=== PATIENT | female | born 1985 | race Two or more races ===

== ENCOUNTER 2017-02-09 18:46 | Emergency (ER) | payer OTHER ==
[~2017-02-09] VITALS: Ht 170.2 cm; Wt 131.5 kg
[~2017-02-09 18:46] MED LIST: NAPR500T8 PO; OXYC-323 PO
--- NOTE | 2017-02-09 19:27 | PHYS DOC ---
Adult General Chief Complaint Chief Complaint: CHEST PAIN HPI HPI Patient is a 31 year old female who presents with onset this morning moderate dyspnea, dyspnea with exertion some tightness in the chest; no nausea vomiting diarrhea no dysuria or frequency or flank pain. No abdominal pain. Denies any prior cardiac history and is not on oral control or hormonal treatment no prior history of DVTs or PE.. Review of Systems Review of Systems Constitutional: Denies fever or chills [] Eyes: Denies change in visual acuity, redness, or eye pain [] HENT: Denies nasal congestion or sore throat [] Respiratory: Denies cough or shortness of breath [] Cardiovascular: No additional information not addressed in HPI [] GI: Denies abdominal pain, nausea, vomiting, bloody stools or diarrhea [] : Denies dysuria or hematuria [] Musculoskeletal: Denies back pain or joint pain [] Integument: Denies rash or skin lesions [] Neurologic: Denies headache, focal weakness or sensory changes [] Endocrine: Denies polyuria or polydipsia [] Current Medications Current Medications Current Medications Medications (Trade) Dose Ordered Sig/Malina Start Time Stop Time Status Last Admin Dose Admin Albuterol Sulfate (Ventolin Neb Soln) 2.5 mg 1X ONCE 02/09/17 21:15 02/09/17 21:21 DC 02/09/17 21:27 2.5 MG Info (Do NOT chart on this entry -- for MONITORING) 1 each PRN DAILY PRN 02/09/17 21:30 02/11/17 21:29 Iohexol (Omnipaque 300 Mg/ml) 75 ml 1X ONCE 02/09/17 21:30 02/09/17 21:31 DC 02/09/17 21:37 75 ML Lorazepam (Ativan) 0.5 mg 1X ONCE 02/09/17 19:15 02/09/17 19:17 DC 02/09/17 19:43 0.5 MG Allergies Allergies Allergies Coded Allergies Type Severity Reaction Last Updated Verified No Known Drug Allergies 03/03/16 No Physical Exam Physical Exam Constitutional: Well developed, well nourished, no acute distress, non-toxic appearance. [] HENT: Normocephalic, atraumatic, bilateral external ears normal, oropharynx moist, no oral exudates, nose normal. [] Eyes: PERRLA, EOMI, conjunctiva normal, no discharge. [] Neck: Normal range of motion, no tenderness, supple, no stridor. [] Cardiovascular:Heart rate regular rhythm, no murmur [] Lungs & Thorax: Bilateral breath sounds clear to auscultation [] Abdomen: Bowel sounds normal, soft, no tenderness, no masses, no pulsatile masses. [] Skin: Warm, dry, no erythema, no rash. [] Back: No tenderness, no CVA tenderness. [] Extremities: No tenderness, no cyanosis, no clubbing, ROM intact, no edema. [] Neurologic: Alert and oriented X 3, normal motor function, normal sensory function, no focal deficits noted. [] Psychologic: Affect normal, judgement normal, mood normal. [] Current Patient Data Vital Signs Vital Signs Date Time Temp Pulse Resp B/P (MAP) Pulse Ox O2 Delivery O2 Flow Rate FiO2 02/09/17 21:28 100 Room Air 02/09/17 21:00 90 30 131/77 (95) 02/09/17 19:02 99.5 99.5 Lab Values Laboratory Tests Test 02/09/17 19:20 02/09/17 20:36 White Blood Count 7.8 x10^3/uL (4.0-11.0) Red Blood Count 4.92 x10^6/uL (3.50-5.40) Hemoglobin 11.9 g/dL (12.0-15.5) L Hematocrit 37.1 % (36.0-47.0) Mean Corpuscular Volume 76 fL (79-100) L Mean Corpuscular Hemoglobin 24 pg (25-35) L Mean Corpuscular Hemoglobin Concent 32 g/dL (31-37) Red Cell Distribution Width 17.7 % (11.5-14.5) H Platelet Count 326 x10^3/uL (140-400) Neutrophils (%) (Auto) 72 % (31-73) Lymphocytes (%) (Auto) 20 % (24-48) L Monocytes (%) (Auto) 7 % (0-9) Eosinophils (%) (Auto) 1 % (0-3) Basophils (%) (Auto) 1 % (0-3) Neutrophils # (Auto) 5.6 x10^3uL (1.8-7.7) Lymphocytes # (Auto) 1.6 x10^3/uL (1.0-4.8) Monocytes # (Auto) 0.5 x10^3/uL (0.0-1.1) Eosinophils # (Auto) 0.1 x10^3/uL (0.0-0.7) Basophils # (Auto) 0.0 x10^3/uL (0.0-0.2) Sodium Level 138 mmol/L (136-145) Potassium Level 3.4 mmol/L (3.5-5.1) L Chloride Level 103 mmol/L (98-107) Carbon Dioxide Level 25 mmol/L (21-32) Anion Gap 10 (6-14) Blood Urea Nitrogen 8 mg/dL (7-20) Creatinine 0.6 mg/dL (0.6-1.0) Estimated GFR (Cockcroft-Gault) 118.2 BUN/Creatinine Ratio 13 (6-20) Glucose Level 125 mg/dL (70-99) H Calcium Level 8.3 mg/dL (8.5-10.1) L Total Bilirubin 0.2 mg/dL (0.2-1.0) Aspartate Amino Transferase (AST) 10 U/L (15-37) L Alanine Aminotransferase (ALT) 18 U/L (14-59) Alkaline Phosphatase 71 U/L (46-116) Troponin I Quantitative < 0.017 ng/mL (0.000-0.055) Total Protein 8.3 g/dL (6.4-8.2) H Albumin 3.6 g/dL (3.4-5.0) Albumin/Globulin Ratio 0.8 (1.0-1.7) L POC Urine HCG, Qualitative Hcg negative (Negative) Laboratory Tests 02/09/17 19:20 Laboratory Tests 02/09/17 19:20 EKG EKG EKG shows normal sinus rhythm rate of 87 no STEMI QTC normal my interpretation [ ] Radiology/Procedures Radiology/Procedures Chest x-ray [] negative for heart failure or infiltrate no acute disease process my interpretation CTA chest was negative for pulmonary embolism per the radiology report that I reviewed. Course & Med Decision Making Course & Med Decision Making Pertinent Labs and Imaging studies reviewed. (See chart for details) Plan will be to check labs EKG chest x-ray and reexamined. Patient has no tachycardia, oxygen saturation 100% on room air, normal respiratory rate no objective findings of any serious etiology for her dyspnea. CTA chest to exclude a large pulmonary embolism. [] Dragon Disclaimer Dragon Disclaimer This electronic medical record was generated, in whole or in part, using a voice recognition dictation system. Departure Departure Impression: Primary Impression: Dyspnea Disposition: HOME, SELF-CARE Condition: STABLE Referrals: UNKNOWN PCP NAME (PCP) Patient Instructions: Shortness of Breath, [id number] Scripts Albuterol Sulfate (VENTOLIN HFA INHALER) 18 Gm Hfa.aer.ad 2 PUFF INH Q4HRS for WHEEZING for 30 Days, #1 INHALER 0 Refills Prov: ZARINA VOGT MD 02/09/17 ZARINA VOGT MD Feb 09, 2017 19:27
[2017-02-09 19:32] LABS: BASO % 1 % (0-3); EOS % 1 % (0-3); HEMATOCRIT 37.1 % (36.0-47.0); HEMOGLOBIN 11.9 g/dL (12.0-15.5); LYMPH # 1.6 x10^3/uL (1.0-4.8); LYMPH % 20 % (24-48); MEAN CORPUSCULAR HEMOGLOBIN 24 pg (25-35); MEAN CORPUSCULAR HGB CONC 32 g/dL (31-37); MEAN CORPUSCULAR VOLUME 76 fL (79-100); MONO % 7 % (0-9); NEUT % 72 % (31-73); PLATELET COUNT 326 x10^3/uL (140-400); RED BLOOD COUNT 4.92 x10^6/uL (3.50-5.40); RED CELL DISTRIBUTION WIDTH 17.7 % (11.5-14.5); WHITE BLOOD COUNT 7.8 x10^3/uL (4.0-11.0)
[2017-02-09 19:54] LABS: CALCIUM 8.3 mg/dL (8.5-10.1); CREATININE 0.6 mg/dL (0.6-1.0); GFR 118.2; POTASSIUM 3.4 mmol/L (3.5-5.1)
[2017-02-09 19:57] LABS: ALBUMIN 3.6 g/dL (3.4-5.0); ALBUMIN/GLOBULIN RATIO 0.8 (1.0-1.7); TOTAL BILIRUBIN 0.2 mg/dL (0.2-1.0); TOTAL PROTEIN 8.3 g/dL (6.4-8.2)
[2017-02-09 21:00] VITALS: BP 131/77
[2017-02-09] MEDS ORDERED: ALBUTEROL SULFATE 2.5 MG/3 ML NEBU. NEB ONE (21:15)
[2017-02-09] MEDS ORDERED: CONTRAST GIVEN MC PRN (21:30)
[2017-02-09] MEDS ORDERED: IOHEXOL 300 MG/ML 75 ML VIAL IV ONE (21:30)
--- NOTE | 2017-02-09 21:58 | RAD ---
EXAM: CT angiography of the chest with intravenous contrast. HISTORY: Chest pain. Shortness of breath. TECHNIQUE: Computed tomographic images of the chest were obtained following the administration of 75 cc Omnipaque 300 intravenous contrast according to angiography protocol. Multiplanar reformatting was performed and 3-dimensional maximum intensity projection images were obtained. *One or more of the following individualized dose reduction techniques were utilized for this examination: 1. Automated exposure control. 2. Adjustment of the mA and/or kV according to patient size. 3. Use of iterative reconstruction technique. COMPARISON: None. FINDINGS: Evaluation for pulmonary embolism is significantly limited due to suboptimal contrast opacification of the pulmonary arteries. No central embolism is seen. The heart is normal in size. No pathologically enlarged lymph node is seen. There is a bovine aortic arch branching pattern, a normal variant. There is no pneumothorax or pleural effusion. There is no infiltrate or suspicious pulmonary nodule. There is hepatomegaly and hepatic steatosis. There is mild splenomegaly. The upper abdomen is otherwise unremarkable. No suspicious osseous lesion is seen. IMPRESSION: 1. Limited evaluation for pulmonary embolism due to suboptimal contrast opacification of the pulmonary arteries. No central embolism is seen. 2. Hepatomegaly and hepatic steatosis. 3. Mild splenomegaly. Electronically signed by: Kandy Anderson MD (02/09/2017 9:55 PM) [facility]
[2017-02-09] MEDS ORDERED: VENTOLIN HFA18 GM INH (22:20)
--- NOTE | 2017-02-10 08:16 | RAD ---
Exam performed: One view chest. Indication: chest pain Date of Service: 02/09/2017 9:11 PM Comparison: None available. Single AP upright portable view chest findings: Cardiomediastinal silhouette is within limits of normal. No acute infiltrates, effusion or pneumothorax is detected. The bony structures are normal. Impression: No acute cardiopulmonary process is detected.
--- NOTE | 2017-02-10 08:17 | EKG ---
[facility] [address] [place] [address] Test Date: 2017-02-09 Test Time: 19:04:18 Pat Name: BHARAT ALBARADO Department: Room: Gender: F [employer] Specialist: : 1985 Requested By: ZARINA VOGT Order Number: [id number] Reading MD: Cricket Fitch Measurements Intervals [place] Rate: 87 P: 27 PA: 174 QRS: 23 QRSD: 94 T: 24 QT: 362 QTc: 441 Interpretive Statements SINUS RHYTHM Electronically Signed On 02-10-2017 9:21:43 CDT by Cricket Fitch
== END 2017-02-09 23:15 | disposition home or self-care (01) ==
LOC: ER 18:46
DX: R06.00 Dyspnea, unspecified (principal); R07.89 Other chest pain
CPT/HCPCS: 36415; 71010; 71275; 80053; 81025; 84484; 85025; 93005; 94250; 94640; 96374; 99285; J2060; J7613; Q9967

== ENCOUNTER 2017-08-14 20:10 | Emergency (ER) | payer OTHER | END 2017-08-14 20:57 | disposition home or self-care (01) | LOC: ER 20:57 | DX: S90.32XA Contusion of left foot, initial encounter (principal); I10 Essential (primary) hypertension; E11.9 Type 2 diabetes mellitus without complications; W20.8XXA Other cause of strike by thrown, projected or falling object, initial encounter; Y93.89 Activity, other specified; Y99.8 Other external cause status; Y92.89 Other specified places as the place of occurrence of the external cause | CPT/HCPCS: 73630; 99284 ==

== ENCOUNTER 2019-05-20 17:35 | Emergency (ER) | payer OTHER ==
[~2019-05-20] VITALS: Ht 170.2 cm; Wt 97.5 kg
[~2019-05-20 17:35] MED LIST changes: -OXYC-323 PO; +OXYC1TAB15 PO; +TRAM-48 PO; +VENTOLIN HFA18 GM INH
[2019-05-20 18:36] VITALS: BP 121/76
[2019-05-20 18:48] LABS: BILIRUBIN,URINE NEGATIVE (NEG); CLARITY,URINE CLEAR; COLOR,URINE YELLOW; NITRITE,URINE NEGATIVE (NEG); PH,URINE 7.5; PROTEIN,URINE NEGATIVE (NEG-TRACE); UROBILINOGEN,URINE 0.2 mg/dL (0.2 mg/dL)
[2019-05-20 18:58] LABS: RBC,URINE 0 /HPF (0-2)
[2019-05-20 18:59] LABS: BACTERIA,URINE FEW /HPF (0-FEW); SQUAMOUS EPITHELIAL CELL,UR FEW /LPF; YEAST,URINE PRESENT /HPF
[2019-05-20] MEDS ORDERED: NYST15CR2 TP (19:18)
[2019-05-20] MEDS ORDERED: FLUC150T PO (19:18)
--- NOTE | 2019-05-20 19:19 | PHYS DOC ---
Past Medical History Past Medical History: Diabetes-Type II, Hypertension Additional Past Medical Histor: COMPARTMENT SYNDROME Past Surgical History: Alcohol Use: Occasionally Drug Use: None Adult General Chief Complaint Chief Complaint: VAGINAL PROBLEM HPI HPI Patient is a 33 year old [f__sex] who presents with [] Review of Systems Review of Systems Constitutional: Denies fever or chills [] Eyes: Denies change in visual acuity, redness, or eye pain [] HENT: Denies nasal congestion or sore throat [] Respiratory: Denies cough or shortness of breath [] Cardiovascular: No additional information not addressed in HPI [] GI: Denies abdominal pain, nausea, vomiting, bloody stools or diarrhea [] : Denies dysuria or hematuria [] Musculoskeletal: Denies back pain or joint pain [] Integument: Denies rash or skin lesions [] Neurologic: Denies headache, focal weakness or sensory changes [] Endocrine: Denies polyuria or polydipsia [] All other systems were reviewed and found to be within normal limits, except as documented in this note. Allergies Allergies Allergies Coded Allergies Type Severity Reaction Last Updated Verified No Known Drug Allergies 03/03/16 No Physical Exam Physical Exam Constitutional: Well developed, well nourished, no acute distress, non-toxic appearance. [] HENT: Normocephalic, atraumatic, bilateral external ears normal, oropharynx moist, no oral exudates, nose normal. [] Eyes: PERRLA, EOMI, conjunctiva normal, no discharge. [] Neck: Normal range of motion, no tenderness, supple, no stridor. [] Cardiovascular:Heart rate regular rhythm, no murmur [] Lungs & Thorax: Bilateral breath sounds clear to auscultation [] Skin: Warm, dry, no erythema, no rash. [] Back: No tenderness, no CVA tenderness. [] Extremities: No tenderness, no cyanosis, no clubbing, ROM intact, no edema. [] Neurologic: Alert and oriented X 3, normal motor function, normal sensory f unction, no focal deficits noted. [] Psychologic: Affect normal, judgement normal, mood normal. [] Current Patient Data Vital Signs Vital Signs Date Time Temp Pulse Resp B/P (MAP) Pulse Ox O2 Delivery O2 Flow Rate FiO2 05/20/19 18:36 98.5 83 16 121/76 (91) 98 Room Air 98.5 Lab Values Laboratory Tests Test 05/20/19 17:50 05/20/19 17:58 05/20/19 18:52 Urine Collection Type Unknown Urine Color Yellow Urine Clarity Clear Urine pH 7.5 Urine Specific [place] 1.020 Urine Protein Negative mg/dL (NEG-TRACE) Urine Glucose (UA) Negative mg/dL (NEG) Urine Ketones (Stick) Negative mg/dL (NEG) Urine Blood Negative (NEG) Urine Nitrite Negative (NEG) Urine Bilirubin Negative (NEG) Urine Urobilinogen Dipstick 0.2 mg/dL (0.2 mg/dL) Urine Leukocyte Esterase Negative (NEG) Urine RBC 0 /HPF (0-2) Urine WBC 1-4 /HPF (0-4) Urine Squamous Epithelial Cells Few /LPF Urine Bacteria Few /HPF (0-FEW) Urine Mucus Mod /LPF Urine Yeast Present /HPF POC Urine HCG, Qualitative Hcg negative (Negative) Chlamydia DNA Probe Negative (Negative) Neisseria gonorrhoeae DNA Probe Negative (Negative) Microbiology 05/20/19 Wet Prep - Final, Complete EKG EKG [] Radiology/Procedures Radiology/Procedures [] Course & Med Decision Making Course & Med Decision Making Pertinent Labs and Imaging studies reviewed. (See chart for details) [] Dragon Disclaimer Dragon Disclaimer This electronic medical record was generated, in whole or in part, using a voice recognition dictation system. Departure Departure Impression: Primary Impression: Candidiasis of vulva and vagina Disposition: 01 HOME, SELF-CARE Condition: STABLE Referrals: AUBREY LONGORIA Jr, MD Patient Instructions: Candidal Vulvovaginitis, Ssho-[id number]-Pass Additional Instructions: Fill the prescriptions and use them as directed. Follow up with Dr. Longoria next week, return to the ER if symptoms worsen. Scripts Nystatin/Triamcin (NYSTATIN-TRIAMCINOLONE CREAM) 15 Gm Cream..g. 1 NIRAJ TP BID for 2 Days, #15 GM 0 Refills Prov: GUIDO PANIAGUA [employer] 05/20/19 Fluconazole (DIFLUCAN) 150 Mg Tablet 1 TAB PO Q3DAYS for 3 Days, #3 TAB 0 Refills take 1 tablet by mouth every 72 hours x3 Prov: GUIDO PANIAGUA [employer] 05/20/19 GUIDO PANIAGUA [employer] May 20, 2019 19:19
[2019-05-24 23:08] LABS: GC PROBE Negative (Negative)
== END 2019-05-20 19:31 | disposition home or self-care (01) ==
LOC: ER 17:35
DX: B37.3 Candidiasis of vulva and vagina (principal); E11.9 Type 2 diabetes mellitus without complications; I10 Essential (primary) hypertension; Z98.890 Other specified postprocedural states
CPT/HCPCS: 81001; 81025; 87491; 87591; 99284; Q0111

== ENCOUNTER 2019-08-06 10:41 | Emergency (ER) | payer OTHER ==
[~2019-08-06] VITALS: Ht 170.2 cm; Wt 100.5 kg
[~2019-08-06 10:41] MED LIST changes: +FLUC150T PO; +NYST15CR2 TP
[2019-08-06 10:45] VITALS: BP 144/71
[2019-08-06 11:09] LABS: BILIRUBIN,URINE NEGATIVE (NEG); CLARITY,URINE CLEAR; COLOR,URINE YELLOW; NITRITE,URINE NEGATIVE (NEG); PROTEIN,URINE NEGATIVE (NEG-TRACE)
[2019-08-06 11:22] LABS: BACTERIA,URINE 0 /HPF (0-FEW); RBC,URINE 0 /HPF (0-2); SQUAMOUS EPITHELIAL CELL,UR MOD /LPF
[2019-08-06 12:04] LABS: INFLUENZA A PATIENT NEGATIVE (NEGATIVE); INFLUENZA B PATIENT NEGATIVE (NEGATIVE)
--- NOTE | 2019-08-06 12:13 | RAD ---
EXAM: Chest, 2 views. HISTORY: Fever. COMPARISON: None. FINDINGS: 2 views of the chest are obtained. There is no infiltrate, pleural effusion or pneumothorax. The heart is normal in size. IMPRESSION: No acute pulmonary finding. Electronically signed by: Kandy Anderson MD (08/06/2019 12:10 PM) [id number]
[2019-08-06] MEDS ORDERED: PRED50TA PO (12:38)
--- NOTE | 2019-08-06 12:38 | PHYS DOC ---
Past Medical History Past Medical History: Diabetes-Type II, Hypertension, Other Additional Past Medical Histor: COMPARTMENT SYNDROME Past Surgical History: , Other Additional Past Surgical Histo: gastric sleeve Smoking Status: Never Smoker Alcohol Use: Occasionally Drug Use: None Adult General Chief Complaint Chief Complaint: FEVER HPI HPI Patient is a 34 year old female presented to the ED today with subjective fevers, body aches, chills, symptoms for 3 days. Review of Systems Review of Systems Constitutional: Reports body aches, chills, fever Eyes: Denies change in visual acuity, redness, or eye pain [] HENT: Denies nasal congestion or sore throat [] Respiratory: Reports cough, denies shortness of breath [] Cardiovascular: No additional information not addressed in HPI [] GI: Denies abdominal pain, nausea, vomiting, bloody stools or diarrhea [] : Denies dysuria or hematuria [] Musculoskeletal: Denies back pain or joint pain [] Integument: Denies rash or skin lesions [] Neurologic: Denies headache, focal weakness or sensory changes [] All other systems were reviewed and found to be within normal limits, except as documented in this note. Allergies Allergies Allergies Coded Allergies Type Severity Reaction Last Updated Verified No Known Drug Allergies 03/03/16 No Physical Exam Physical Exam Constitutional: Well developed, well nourished, no acute distress, non-toxic appearance. [] HENT: Normocephalic, atraumatic, bilateral external ears normal, oropharynx moist, no oral exudates, nose normal. [] Eyes: PERRLA, EOMI, conjunctiva normal, no discharge. [] Neck: Normal range of motion, no tenderness, supple, no stridor. [] Cardiovascular:Heart rate regular rhythm, no murmur [] Lungs & Thorax: Bilateral breath sounds clear to auscultation [] Abdomen: Bowel sounds normal, soft, no tenderness, no masses, no pulsatile masses. [] Skin: Warm, dry, no erythema, no rash. [] Back: No tenderness, no CVA tenderness. [] Extremities: No tenderness, no cyanosis, no clubbing, ROM intact, no edema. [] Neurologic: Alert and oriented X 3, normal motor function, normal sensory function, no focal deficits noted. [] Psychologic: Affect normal, judgement normal, mood normal. [] Current Patient Data Vital Signs Vital Signs Date Time Temp Pulse Resp B/P (MAP) Pulse Ox O2 Delivery O2 Flow Rate FiO2 08/06/19 10:45 98.5 106 16 144/71 (95) 99 Room Air 98.5 Lab Values Laboratory Tests Test 08/06/19 10:55 08/06/19 11:01 08/06/19 11:30 Urine Collection Type Unknown Urine Color Yellow Urine Clarity Clear Urine pH 7.0 Urine Specific [place] 1.020 Urine Protein Negative mg/dL (NEG-TRACE) Urine Glucose (UA) Negative mg/dL (NEG) Urine Ketones (Stick) Negative mg/dL (NEG) Urine Blood Negative (NEG) Urine Nitrite Negative (NEG) Urine Bilirubin Negative (NEG) Urine Urobilinogen Dipstick 1.0 mg/dL (0.2 mg/dL) Urine Leukocyte Esterase Negative (NEG) Urine RBC 0 /HPF (0-2) Urine WBC 1-4 /HPF (0-4) Urine Squamous Epithelial Cells Mod /LPF Urine Bacteria 0 /HPF (0-FEW) POC Urine HCG, Qualitative Hcg negative (Negative) Influenza Type A Antigen Negative (NEGATIVE) Influenza Type B Antigen Negative (NEGATIVE) EKG EKG [] Radiology/Procedures Radiology/Procedures []PROCEDURE: CHEST PA & LATERAL EXAM: Chest, 2 views. HISTORY: Fever. COMPARISON: None. FINDINGS: 2 views of the chest are obtained. There is no infiltrate, pleural effusion or pneumothorax. The heart is normal in size. IMPRESSION: No acute pulmonary finding. Electronically signed by: Kandy Anderson MD (08/06/2019 12:10 PM) [id number] DICTATED and SIGNED BY: KANDY ANDERSON MD DATE: 08/06/19 1210 Course & Med Decision Making Course & Med Decision Making Pertinent Labs and Imaging studies reviewed. (See chart for details) This is a 34-year-old female patient presenting to the ED today complaining of body aches, chills, fevers, symptoms began 3 days ago. Negative urine hCG, urine analysis is negative for infection, chest x-ray is negative as interpreted by radiologist. Negative influenza A or B. Patient was discharged to home. Supportive care measures commended. Follow-up with PCP in 1-2 weeks Dragtej Disclaimer Dragon Disclaimer This electronic medical record was generated, in whole or in part, using a voice recognition dictation system. Departure Departure Impression: Primary Impression: Fever Additional Impression: Viral illness Disposition: 01 HOME, SELF-CARE Condition: STABLE Referrals: NO PCP (PCP) Follow up with your doctor in 1-2 weeks Patient Instructions: Fever, Adult Additional Instructions: You were evaluated in the emergency room, your chest x-ray is negative, influenza test is negative, your urine was negative for infection. Your symptoms could be viral. Please push fluids, rest, maintain good hand hygiene. Take the prescribed medications as ordered. Follow-up with your doctor in 1-2 weeks Scripts Prednisone (PREDNISONE) 50 Mg Tablet 1 TAB PO DAILY, #5 TAB Prov: FRED GREGORY APRN 08/06/19 Problem Qualifiers Primary Impression: Fever Fever type: unspecified Qualified Codes: R50.9 - Fever, unspecified FRED GREGORY APRN Aug 06, 2019 12:38
== END 2019-08-06 12:44 | disposition home or self-care (01) ==
LOC: ER 10:41
DX: B34.9 Viral infection, unspecified (principal); E11.9 Type 2 diabetes mellitus without complications; I10 Essential (primary) hypertension
CPT/HCPCS: 71046; 81001; 81025; 87804; 99284-25

== ENCOUNTER 2020-01-19 16:07 | Emergency (ER) | payer OTHER ==
[~2020-01-19] VITALS: Ht 170.2 cm; Wt 100.0 kg
[~2020-01-19 16:07] MED LIST changes: +PRED50TA PO
[2020-01-19] MEDS ORDERED: LIDO20SO10 MM (17:17)
--- NOTE | 2020-01-19 17:21 | PHYS DOC ---
Past Medical History Past Medical History: Diabetes-Type II, Hypertension, Other Additional Past Medical Histor: COMPARTMENT SYNDROME Past Surgical History: , Other Additional Past Surgical Histo: gastric sleeve Smoking Status: Current Some Day Smoker Alcohol Use: Occasionally Drug Use: None General Adult EDM: Chief Complaint: BREAST PROBLEM HPI: HPI: Patient is a 34 year old female who presents with right breast pain. This is been ongoing for the last 2 months but is progressively gotten worse. Initially it only occurred when she was getting closer. But now it has been constant. She states that she has severe pain if she puts on a brawl or if anything touches her nipple. She is concerned because her mother had breast cancer in her early 40s. She is tried to see her [facility] but has been unsuccessful due to multiple consultations. She states the pain feels like a burning sensation and she is very tender to touch. She is never had anything like this previously. Review of Systems: Review of Systems: Negative except marked Heart Score: Risk Factors: Risk Factors: DM, Current or recent (<one month) smoker, HTN, HLP, family history of CAD, obesity. Risk Scores: Score 0 - 3: 2.5% MACE over next 6 weeks - Discharge Home Score 4 - 6: 20.3% MACE over next 6 weeks - Admit for Clinical Observation Score 7 - 10: 72.7% MACE over next 6 weeks - Early Invasive Strategies Allergies: Allergies: Allergies Coded Allergies Type Severity Reaction Last Updated Verified No Known Drug Allergies 03/03/16 No Physical Exam: PE: General: Awake, alert, NAD. Well Nourished, well hydrated. Cooperative HEENT: Atraumatic, EOMI, PERRL, airway patent, moist oral mucosa Neck: Supple, trachea midline Breast: Bilateral breast appear normal, no dimpling or change in color, no discharge. R breast with severe tenderness to nipple. Respiratory: CTA bilaterally, normal effort, no wheezing/crackles CV: RRR, no murmur, cap refill <2 GI: Soft, nondistended, nontender, no masses MSK: No obvious deformities Skin: Warm, dry, intact Neuro: A&O x3, speech NL, sensory and motor grossly intact, no focal deficits Psych: Normal affect, normal mood, not suicidal or homicidal Current Patient Data: Vital Signs: Vital Signs Date Time Temp Pulse Resp B/P (MAP) Pulse Ox O2 Delivery O2 Flow Rate FiO2 01/19/20 16:15 98.5 68 16 134/73 (93) 100 Room Air 98.5 EKG: EKG: [] Radiology/Procedures: Radiology/Procedures: [] Course & Med Decision Making: Course & Med Decision Making Pertinent Labs and Imaging studies reviewed. (See chart for details) Patient is a 34-year-old female who presents to the emergency room complaining of severe breast pain. Skin appears normal. There is no obvious mass or signs of infection at this time. We will do viscous lidocaine. I have recommended to her that she follow-up with [facility] soon for a mammogram. Patient's test results and vitals while in the ED were fully reviewed and discussed with the patient. Patient is stable and at this time does not need admission to the hospital. We have discussed strict return precautions and the importance of following up with their Primary Care Physician. Patient stated understanding and was given an opportunity to ask any questions. Patient is in agreement with plan. Rona Disclaimer: Dragtej Disclaimer: This electronic medical record was generated, in whole or in part, using a voice recognition dictation system. Departure Departure Impression: Primary Impression: Acute breast pain Disposition: HOME, SELF-CARE Condition: STABLE Referrals: NO PCP (PCP) ROGER DIAZ MD Patient Instructions: Breast Tenderness Scripts Lidocaine HCl (Lidocaine HCl Viscous) 15 Ml Solution 5 ML MM TID, #120 ML Prov: KATHY MORTON MD 01/19/20 Justicifation of Admission Dx: Justifications for Admission: Justification of Admission Dx: No KATHY MORTON MD Jan 19, 2020 17:21
[2020-01-19] MEDS ORDERED: LIDOCAINE 2% VISCOUS 15 ML SOLUTION. SWSW ONE (17:30)
[2020-01-19 17:47] VITALS: BP 142/67
[2020-01-19] MEDS ORDERED: oxyCODONE/APAP 5/325 1 TAB TABLET PO ONE (18:00)
== END 2020-01-19 17:50 | disposition home or self-care (01) ==
LOC: ER 16:07
DX: N64.4 Mastodynia (principal); I10 Essential (primary) hypertension; E11.9 Type 2 diabetes mellitus without complications; F17.200 Nicotine dependence, unspecified, uncomplicated
CPT/HCPCS: 99285-25

== ENCOUNTER → 2020-01-24 | Outpatient (CLI) | payer OTHER ==
[2020-01-19 17:47] VITALS: BP 142/67
[~2020-01-24] MED LIST changes: +LIDO20SO10 MM
--- NOTE | 2020-01-24 16:13 | RAD ---
Examination: Whole breast right breast ultrasound INDICATION: 34-year-old early female with intermittent right breast pain. Patient reported area of palpable concern at the time of initial presentation to her referring clinician but no discrete mass on self exam at this visit. COMPARISON: None. TECHNIQUE: Grayscale ultrasound imaging of the right breast was performed including the subareolar breast and the axilla. FINDINGS: Scattered fibroglandular tissue is demonstrated with no dominant mass, architectural distortion or suspicious sonographic findings. The nipple areolar complex is normal. There is no axillary adenopathy. IMPRESSION: Negative whole breast right breast ultrasound. No sonographic evidence of malignancy. Recommend clinical management of patient's areas of intermittent pain and reported palpable concern which may include biopsy if there are any clinically suspicious findings on physical exam. In the absence of any clinically suspicious findings, age-appropriate routine annual mammographic screening starting at age 40 in average risk women is recommended. Discussed with patient. BI-RADS Category 1 Negative Patient entered into a reminder system with target due date for next mammogram.
== END | disposition home or self-care (01) ==
LOC: US 09:37
PROVIDERS: ATTEND Obstetrics & Gynecology
DX: N64.4 Mastodynia (principal)
CPT/HCPCS: 36415; 76641

== ENCOUNTER → 2020-01-24 | Outpatient (CLI) | payer OTHER ==
[2020-01-19 17:47] VITALS: BP 142/67
== END | disposition home or self-care (01) ==
LOC: LAB 08:37
PROVIDERS: ATTEND Obstetrics & Gynecology
DX: N92.6 Irregular menstruation, unspecified (principal)
CPT/HCPCS: 36415; 84702

== ENCOUNTER → 2020-02-03 | Outpatient (CLI) | payer OTHER ==
[2020-01-19 17:47] VITALS: BP 142/67
[2020-02-03 11:53] LABS: HEMATOCRIT 24.3 % (36.0-47.0); HEMOGLOBIN 7.3 g/dL (12.0-15.5); MEAN CORPUSCULAR HEMOGLOBIN 18 pg (25-35); MEAN CORPUSCULAR HGB CONC 30 g/dL (31-37); MEAN CORPUSCULAR VOLUME 61 fL (79-100); PLATELET COUNT 416 x10^3/uL (140-400); RED BLOOD COUNT 3.98 x10^6/uL (3.50-5.40); RED CELL DISTRIBUTION WIDTH 19.3 % (11.5-14.5)
[2020-02-03 12:23] LABS: FREE T4 1.1 ng/dL (0.76-1.46); THYROID STIM HORMONE (TSH) 2.114 uIU/mL (0.358-3.74)
[2020-02-04 16:10] LABS: RUBELLA IGG ANTIBODY 1.43 index (Immune >0.99)
== END | disposition home or self-care (01) ==
LOC: LAB 10:52
PROVIDERS: ATTEND Obstetrics & Gynecology
DX: Z34.91 Encounter for supervision of normal pregnancy, unspecified, first trimester (principal)
CPT/HCPCS: 81220; 83020; 84439; 84443; 85027; 85660; 86592; 86703; 86762; 86787; 86803; 86850; 86900; 86901; 87340

== ENCOUNTER → 2020-02-22 | Outpatient (CLI) | payer OTHER ==
--- NOTE | 2020-02-22 17:15 | RAD ---
Examination: OB < 14 WKS History: Reason: IUP SIZE AND DATES / Spl. Instructions: / History: Comparison/Correlation: None Findings: OB ultrasound exam was performed. Uterus measures 14 cm x 8.6 cm x 6.2 cm. Myometrium is unremarkable. Gestational sac is visualized. Yolk sac noted. pole has crown-rump length of 2.1 cm corresponding to 8 weeks 5 days. heart rate is 171 beats per minute. Ultrasound EDC is 09/28/2020. No subchorionic hemorrhage identified. Right ovary measures 3 cm x 2 cm 1.9 cm left ovary measures 3 cm x 2.3 cm x 2 cm. Normal renal inflow bilaterally seen. No adnexal mass. Impression: Single living intrauterine gestation corresponding to 8 weeks 5 days by crown-rump length. No suspicious findings. Electronically signed by: Colin Robins MD (02/22/2020 5:12 PM) [id number]
== END | disposition home or self-care (01) ==
LOC: US 16:20
PROVIDERS: ATTEND Obstetrics & Gynecology
DX: Z34.91 Encounter for supervision of normal pregnancy, unspecified, first trimester (principal); Z3A.08 8 weeks gestation of pregnancy
CPT/HCPCS: 76801

== ENCOUNTER 2020-03-11 14:24 | Emergency (ER) | payer OTHER ==
[~2020-03-11] VITALS: Ht 170.2 cm; Wt 102.9 kg
[2020-03-11 14:58] LABS: BILIRUBIN,URINE NEGATIVE (NEG); CLARITY,URINE CLEAR; COLOR,URINE YELLOW; NITRITE,URINE NEGATIVE (NEG); PROTEIN,URINE NEGATIVE (NEG-TRACE); UROBILINOGEN,URINE 0.2 mg/dL (0.2 mg/dL)
[2020-03-11] MEDS ORDERED: ACETAMINOPHEN 500 MG TABLET PO ONE (15:00)
[2020-03-11 15:02] LABS: BACTERIA,URINE FEW /HPF (0-FEW); RBC,URINE OCC /HPF (0-2); SQUAMOUS EPITHELIAL CELL,UR MOD /LPF
[2020-03-11 15:03] LABS: WBC,URINE OCC /HPF (0-4); YEAST,URINE PRESENT /HPF
[2020-03-11 15:06] LABS: BASO % 1 % (0-3); EOS # 0.1 x10^3/uL (0.0-0.7); EOS % 1 % (0-3); HEMATOCRIT 24.8 % (36.0-47.0); HEMOGLOBIN 7.6 g/dL (12.0-15.5); LYMPH # 1.6 x10^3/uL (1.0-4.8); LYMPH % 23 % (24-48); MEAN CORPUSCULAR HEMOGLOBIN 18 pg (25-35); MEAN CORPUSCULAR HGB CONC 31 g/dL (31-37); MEAN CORPUSCULAR VOLUME 59 fL (79-100); MONO # 0.5 x10^3/uL (0.0-1.1); MONO % 7 % (0-9); NEUT # 4.7 x10^3/uL (1.8-7.7); NEUT % 68 % (31-73); PLATELET COUNT 397 x10^3/uL (140-400); RED BLOOD COUNT 4.19 x10^6/uL (3.50-5.40); RED CELL DISTRIBUTION WIDTH 18.3 % (11.5-14.5)
[2020-03-11 15:13] LABS: CALCIUM 8.8 mg/dL (8.5-10.1); CREATININE 0.8 mg/dL (0.6-1.0); GFR 83.1; POTASSIUM 3.9 mmol/L (3.5-5.1)
[2020-03-11 15:18] LABS: PLT ESTIMATE ADEQUATE (ADEQUATE)
[2020-03-11 15:19] LABS: ANISOCYTOSIS SLIGHT; HYPOCHROMIA MARKED; MICROCYTOSIS MARKED; POIKILOCYTOSIS SLIGHT
[2020-03-11 15:20] LABS: OVALOCYTES PRESENT
[2020-03-11 15:22] LABS: ALBUMIN 3.2 g/dL (3.4-5.0); ALBUMIN/GLOBULIN RATIO 0.7 (1.0-1.7); TOTAL BILIRUBIN 0.3 mg/dL (0.2-1.0); TOTAL PROTEIN 8.1 g/dL (6.4-8.2)
--- NOTE | 2020-03-11 16:04 | PHYS DOC ---
Past Medical History Past Medical History: Anemia, Diabetes-Type II, Hypertension, Other Additional Past Medical Histor: COMPARTMENT SYNDROME,CLUB FOOT Past Surgical History: , Other Additional Past Surgical Histo: gastric sleeve, X5 Smoking Status: Former Smoker Alcohol Use: None Drug Use: None General Adult EDM: Chief Complaint: ABDOMINAL PAIN IN HPI: HPI: The history was obtained from the patient. Patient is a 34-year-old female with PMH anemia who presents with a chief complaint of suprapubic abdominal cramping. Patient states the pain began yesterday. States the pain is been more constant than normal. States has had cramping 2 months ago with her but this pain is more constant and has her concerned. Denies vaginal bleeding or discharge. Denies dysuria or hematuria. Denies syncope. States she followed Dr. Diaz for her GRINDER OPERATOR AUTOMATIC needs. She estimates she is 13 weeks . States she has had an ultrasound to confirm IUP. Denies chest pain or shortness of breath. Has tried Tylenol at home with minimal relief. Denies vomiting. No other complaints. Review of Systems: Review of Systems: Constitutional: Denies fever or chills. [] Eyes: Denies change in visual acuity. [] HENT: Denies nasal congestion or sore throat. [] Respiratory: Denies cough or shortness of breath. [] Cardiovascular: Denies chest pain or edema. [] GI: Positive for abdominal pain : Denies dysuria. [] Musculoskeletal: Denies back pain or joint pain. [] Integument: Denies rash. [] Neurologic: Denies headache, focal weakness or sensory changes. [] Endocrine: Denies polyuria or polydipsia. [] Lymphatic: Denies swollen glands. [] Psychiatric: Denies depression or anxiety. [] Heart Score: Risk Factors: Risk Factors: DM, Current or recent (<one month) smoker, HTN, HLP, family history of CAD, obesity. Risk Scores: Score 0 - 3: 2.5% MACE over next 6 weeks - Discharge Home Score 4 - 6: 20.3% MACE over next 6 weeks - Admit for Clinical Observation Score 7 - 10: 72.7% MACE over next 6 weeks - Early Invasive Strategies Current Medications: Current Medications Medications (Trade) Dose Ordered Sig/Malina Start Time Stop Time Status Last Admin Dose Admin Acetaminophen (Tylenol) 1,000 mg 1X ONCE 03/11/20 15:00 03/11/20 15:01 DC 03/11/20 15:18 1,000 MG Allergies: Allergies: Allergies Coded Allergies Type Severity Reaction Last Updated Verified No Known Drug Allergies 03/03/16 No Physical Exam: PE: Constitutional: Well developed, well nourished, no acute distress, non-toxic appearance. [] HENT: Normocephalic, atraumatic, bilateral external ears normal, oropharynx moist, no oral exudates, nose normal. [] Eyes: PERRLA, EOMI, conjunctiva normal, no discharge. [] Neck: Normal range of motion, no tenderness, supple, no stridor. [] Cardiovascular:Heart rate regular rhythm, no murmur [] Lungs & Thorax: Bilateral breath sounds clear to auscultation [] Abdomen: soft, nontender, nonacute abdomen. No involuntary guarding or rigidity noted. No acute peritonitis. Skin: Warm, dry, no erythema, no rash. [] Back: No tenderness, no CVA tenderness. [] Extremities: No tenderness, no cyanosis, no clubbing, ROM intact, no edema. [] Neurologic: Alert and oriented X 3, normal motor function, normal sensory function, no focal deficits noted. [] Psychologic: Affect normal, judgement normal, mood normal. [] Current Patient Data: Labs: Laboratory Tests Test 03/11/20 14:36 03/11/20 14:55 03/11/20 14:58 Urine Collection Type Unknown Urine Color Yellow Urine Clarity Clear Urine pH 7.0 (<5.0-8.0) Urine Specific [place] 1.010 (1.000-1.030) Urine Protein Negative mg/dL (NEG-TRACE) Urine Glucose (UA) Negative mg/dL (NEG) Urine Ketones (Stick) Negative mg/dL (NEG) Urine Blood Negative (NEG) Urine Nitrite Negative (NEG) Urine Bilirubin Negative (NEG) Urine Urobilinogen Dipstick 0.2 mg/dL (0.2 mg/dL) Urine Leukocyte Esterase Negative (NEG) Urine RBC Occ /HPF (0-2) Urine WBC Occ /HPF (0-4) Urine Squamous Epithelial Cells Mod /LPF Urine Bacteria Few /HPF (0-FEW) Urine Yeast Present /HPF POC Urine HCG, Qualitative Hcg positive (Negative) White Blood Count 7.0 x10^3/uL (4.0-11.0) Red Blood Count 4.19 x10^6/uL (3.50-5.40) Hemoglobin 7.6 g/dL (12.0-15.5) L Hematocrit 24.8 % (36.0-47.0) L Mean Corpuscular Volume 59 fL (79-100) L Mean Corpuscular Hemoglobin 18 pg (25-35) L Mean Corpuscular Hemoglobin Concent 31 g/dL (31-37) Red Cell Distribution Width 18.3 % (11.5-14.5) H Platelet Count 397 x10^3/uL (140-400) Neutrophils (%) (Auto) 68 % (31-73) Lymphocytes (%) (Auto) 23 % (24-48) L Monocytes (%) (Auto) 7 % (0-9) Eosinophils (%) (Auto) 1 % (0-3) Basophils (%) (Auto) 1 % (0-3) Neutrophils # (Auto) 4.7 x10^3/uL (1.8-7.7) Lymphocytes # (Auto) 1.6 x10^3/uL (1.0-4.8) Monocytes # (Auto) 0.5 x10^3/uL (0.0-1.1) Eosinophils # (Auto) 0.1 x10^3/uL (0.0-0.7) Basophils # (Auto) 0.0 x10^3/uL (0.0-0.2) Platelet Estimate Adequate (ADEQUATE) Hypochromasia Marked Poikilocytosis Slight Anisocytosis Slight Microcytosis Marked Ovalocytes Present Sodium Level 136 mmol/L (136-145) Potassium Level 3.9 mmol/L (3.5-5.1) Chloride Level 106 mmol/L (98-107) Carbon Dioxide Level 23 mmol/L (21-32) Anion Gap 7 (6-14) Blood Urea Nitrogen 10 mg/dL (7-20) Creatinine 0.8 mg/dL (0.6-1.0) Estimated GFR (Cockcroft-Gault) 83.1 BUN/Creatinine Ratio 13 (6-20) Glucose Level 89 mg/dL (70-99) Calcium Level 8.8 mg/dL (8.5-10.1) Total Bilirubin 0.3 mg/dL (0.2-1.0) Aspartate Amino Transferase (AST) 12 U/L (15-37) L Alanine Aminotransferase (ALT) 11 U/L (14-59) L Alkaline Phosphatase 59 U/L (46-116) Total Protein 8.1 g/dL (6.4-8.2) Albumin 3.2 g/dL (3.4-5.0) L Albumin/Globulin Ratio 0.7 (1.0-1.7) L Lipase 100 U/L (73-393) Laboratory Tests 03/11/20 14:58 Laboratory Tests 03/11/20 14:58 Vital Signs: Vital Signs Date Time Temp Pulse Resp B/P (MAP) Pulse Ox O2 Delivery O2 Flow Rate FiO2 03/11/20 14:48 97.1 78 20 140/64 (89) 99 Room Air 97.1 EKG: EKG: [] Radiology/Procedures: Radiology/Procedures: [facility] [address] [place], [place] [id number] IMAGING REPORT Signed PATIENT: BHARAT ALBARADO I ACCOUNT: [id number] : 1985 LOCATION: ER AGE: 34 SEX: F EXAM STATUS: REG ER ORD. PHYSICIAN: HORTENCIA ROSENTHAL DO REASON: abdominal cramping PROCEDURE: OB < 14 WKS Exam: Ultrasound OB less than 14 weeks Indication: Abdominal cramping Technique: Real-time grayscale and color Doppler images of the pelvis were obtained by the department network mgr. Comparisons: None FINDINGS: Uterus measures 13 x 11 x 7.5 cm. Within the endometrium there is a gestational sac with pole measuring 5.2 cm corresponding to 11 weeks 6 days. heart rate is measured at 171 bpm. Left ovary measures 2.5 x 2.1 x 1.9 cm. Vascular flow identified in the left ovary. Right ovary is not visualized. No free fluid. IMPRESSION: 1. Single live intrauterine gestation of 12 weeks 1 day by LMP with concordant ultrasound. EDC 09/22/2020 2. Dedicated survey is recommended at 18-20 weeks gestation. Electronically signed by: Shikha Coe MD (03/11/2020 5:12 PM) [id number] DICTATED and SIGNED BY: SHIKHA COE MD DATE: 03/11/201711 [] Course & Med Decision Making: Course & Med Decision Making Pertinent Labs and Imaging studies reviewed. (See chart for details) [] Patient is a well-appearing 34-year-old female presents with chief complaint of suprapubic abdominal cramping. Noted to be approximately 13 weeks . Initial vital signs unremarkable including non-tachycardic afebrile. Abdomen without peritonitis or involuntary guarding. Ultrasound imaging was obtained and does reveal an intrauterine estimated age 11 weeks. Appropriate heart tones. Urine without evidence of infection. Labs grossly unremarkable. CBC without leukocytosis. On repeat examination her abdomen is benign. She has tolerated p.o. She does state that she has been eating and drinking well overall. Overall low suspicion for appendicitis however given the location of her discomfort she was given strict 8 to 12-hour return precaution s. This will compromise home and self monitoring closely. Instructed follow-up with her GRINDER OPERATOR AUTOMATIC in the next 2 to 3 days. Return precautions discussed and understood. Stable for discharge home. Dragon Disclaimer: [place]miro Disclaimer: This electronic medical record was generated, in whole or in part, using a voice recognition dictation system. Departure Departure Impression: Primary Impression: Abdominal pain in Qualified Codes: O26.891 - Other specified related conditions, first trimester; R10.9 - Unspecified abdominal pain Disposition: 01 HOME, SELF-CARE Condition: STABLE Referrals: NO PCP (PCP) ROGER DIAZ MD Patient Instructions: Abdominal Pain During Additional Instructions: Discharge Abdominal Pain Re-Check Precautions: I'm unsure of the specific cause of your abdominal pain. However, at this point I feel that you are low risk for a life threatening emergency and that discharge from the Emergency Department is safe. There is a very small possibility that you are just too early in your clinical course for our physical exam/labs/imaging to ascertain whether or not you have an emergent condition that could potentially cause permanent disability or be life threatening. As such, it is very important that you follow up with your primary doctor or return to the Emergency Department in 12-24 hours for re-assessment and further evaluation if clinically indicated. If you develop new or worsening symptoms then you should return to the Emergency Department immediately. Home Care Instructions: Abdominal Pain Many things may cause abdominal pain. Your ER visit might not show the exact reason you are having pain. In some cases, additional time is needed to determine if the cause is serious. Therefore you may be told to go home and watch for any changes or worsening in your condition. Before that, we may not know if you need more testing, or if hospitalization or surgery is necessary. If its not something serious, the pain may go away without treatment or get better with simple things like avoiding certain foods or medications. In the ER, your doctor asks you questions, examines you and in some cases, may order tests. These help doctors decide if the pain is from something serious. Tests are not always done and may not provide a definite answer. There can still be a problem, even with normal test results. Abdominal pain may be caused by something serious (like appendicitis), which is not obvious right away. Because of this, another checkup is needed to make sure you are OK. It is VERY IMPORTANT to follow up for a repeat exam, especially if you have any symptoms that are not going away or are getting worse. We recommend that you RETURN TO THE EMERGENCY ROOM IN 8-12 HOURS to be rechecked. If you cannot, you may follow up with your primary care doctor or clinic. It is important that you follow all of the instructions below. RETURN TO THE EMERGENCY ROOM IMMEDIATELY IF: The pain does not go away or gets worse. You have a fever. You keep throwing up and cannot keep anything down. You pass bloody or black stools. You develop new symptoms. HOME CARE INSTRUCTIONS Come back to the ER (or see your doctor) in 8-12 hours. DO NOT take laxatives unless directed by your doctor. Avoid the use of alcohol Take pain medicine only as directed by your doctor. Only take [id number] or prescription medicine as directed by your doctor. Try a clear liquid diet (broth, tea, jello, water) for the next 12-24 hours. Slowly move to a bland diet as tolerated. Do not eat greasy, fatty or spicy foods. Once you start getting better, go back to a normal, healthy diet, slowly over a few days. DISCHARGE PT INSTRUCTIONS: YOU HAVE BEEN EVALUATED FOR ABDOMINAL PAIN. HOWEVER, WE ARE UNABLE TO PROVIDE A DEFINITE CAUSE OF YOUR SYMPTOMS. EVEN THOUGH YOUR TESTS MAY HAVE BEEN NORMAL, YOU STILL COULD HAVE A SERIOUS CAUSE FOR YOUR ABDOMINAL PAIN, INCLUDING APPENDICITIS. THE BEST TEST TO DETERMINE IF YOU HAVE A SERIOUS CAUSE IS RE-EXAMINATION OVER TIME. WE USED TO ADMIT PATIENTS TO THE HOSPITAL FOR THIS, BUT CAN NOW ALLOW YOU TO GO HOME, & RETURN TO OUR ER THE NEXT DAY FOR RE- EXAMINATION. THUS, WE WOULD LIKE YOU TO RETURN TO OUR ER TOMORROW FOR YOUR RE- EVALUATION. (IF YOUR SYMPTOMS HAVE GONE AWAY, THEN YOU DO NOT NEED TO RETURN.) IF YOUR SYMPTOMS GET WORSE BETWEEN NOW & THEN, YOU SHOULD RETURN IMMEDIATELY & NOT WAIT UNTIL TOMORROW. SYMPTOMS TO LOOK FOR WO RSENING PAIN, HIGH FEVER, PERSISTENT VOMITING [NOT CONTROLLED BY MEDICINE], AND/OR OVERALL WORSENING OF YOUR CONDITION. Scripts Acetaminophen (Tylenol) 325 Mg Capsule 1000 MG PO TID PRN PRN for PAIN for 7 Days, #21 CAP Prov: HORTENCIA ROSENTHAL DO 03/11/20 Justicifation of Admission Dx: Justifications for Admission: Justification of Admission Dx: N/A HORTENCIA ROSENTHAL DO Mar 11, 2020 16:04
[2020-03-11] MEDS ORDERED: ACET325C6 PO (16:58)
--- NOTE | 2020-03-11 17:14 | RAD ---
Exam: Ultrasound OB less than 14 weeks Indication: Abdominal cramping Technique: Real-time grayscale and color Doppler images of the pelvis were obtained by the department cable splicer apprentice. Comparisons: None FINDINGS: Uterus measures 13 x 11 x 7.5 cm. Within the endometrium there is a gestational sac with pole measuring 5.2 cm corresponding to 11 weeks 6 days. heart rate is measured at 171 bpm. Left ovary measures 2.5 x 2.1 x 1.9 cm. Vascular flow identified in the left ovary. Right ovary is not visualized. No free fluid. IMPRESSION: 1. Single live intrauterine gestation of 12 weeks 1 day by LMP with concordant ultrasound. EDC 09/22/2020 2. Dedicated survey is recommended at 18-20 weeks gestation. Electronically signed by: Shikha Crane MD (03/11/2020 5:12 PM) [id number]
[2020-03-11 17:24] VITALS: BP 104/58
== END 2020-03-11 17:35 | disposition home or self-care (01) ==
LOC: ER 14:24
DX: O26.891 Other specified pregnancy related conditions, first trimester (principal); R10.9 Unspecified abdominal pain; E11.9 Type 2 diabetes mellitus without complications; I10 Essential (primary) hypertension; Z98.890 Other specified postprocedural states; Z87.891 Personal history of nicotine dependence; Z3A.11 11 weeks gestation of pregnancy
CPT/HCPCS: 36415; 76801; 80053; 81001; 81025; 83690; 85025; 99285

== ENCOUNTER → 2020-03-30 | Outpatient (CLI) | payer OTHER ==
[2020-03-11 17:24] VITALS: BP 104/58
[~2020-03-30] MED LIST changes: +ACET325C6 PO
[2020-03-30 10:17] LABS: BASO % 0 % (0-3); EOS # 0.1 x10^3/uL (0.0-0.7); EOS % 2 % (0-3); HEMATOCRIT 26.5 % (36.0-47.0); HEMOGLOBIN 7.8 g/dL (12.0-15.5); LYMPH % 20 % (24-48); MEAN CORPUSCULAR HEMOGLOBIN 18 pg (25-35); MEAN CORPUSCULAR HGB CONC 29 g/dL (31-37); MEAN CORPUSCULAR VOLUME 61 fL (79-100); MONO # 0.3 x10^3/uL (0.0-1.1); MONO % 6 % (0-9); NEUT # 3.8 x10^3/uL (1.8-7.7); NEUT % 72 % (31-73); PLATELET COUNT 411 x10^3/uL (140-400); RED BLOOD COUNT 4.36 x10^6/uL (3.50-5.40); RED CELL DISTRIBUTION WIDTH 18.9 % (11.5-14.5); WHITE BLOOD COUNT 5.3 x10^3/uL (4.0-11.0)
[2020-03-30 12:46] LABS: ANISOCYTOSIS PRESENT; HYPOCHROMIA PRESENT; MICROCYTOSIS PRESENT; PLT ESTIMATE ADEQUATE (ADEQUATE)
== END ==
LOC: LAB 09:51
PROVIDERS: ATTEND Obstetrics & Gynecology
DX: Z34.92 Encounter for supervision of normal pregnancy, unspecified, second trimester (principal); Z3A.00 Weeks of gestation of pregnancy not specified
CPT/HCPCS: 36415; 82607; 82728; 82746; 83540; 83550; 85025

== ENCOUNTER → 2020-04-27 | Outpatient (CLI) | payer OTHER | LOC: LAB 10:58 | PROVIDERS: ATTEND Obstetrics & Gynecology | DX: Z34.92 Encounter for supervision of normal pregnancy, unspecified, second trimester (principal); Z3A.18 18 weeks gestation of pregnancy | CPT/HCPCS: 81511 ==

== ENCOUNTER → 2020-05-01 | Outpatient (CLI) | payer OTHER ==
--- NOTE | 2020-05-01 17:53 | KCIC ---
EXAM: Ultrasound OB Greater than 14 weeks INDICATION: Reason: SIZE AND DATES / Spl. Instructions: / History: TECHNIQUE: Real-time obstetrical ultrasound was performed with permanent freeze-frame documentation. COMPARISON: None. FINDINGS: POSITION: Variable HEART RATE: 153 bpm ROSIO: 11.8 cm PLACENTA: Anterior, low-lying. CERVICAL LENGTH: 3.1 cm. MATERNAL UTERUS: Unremarkable. MATERNAL ADNEXA: Unremarkable. AGE/DATES: Gestational Age by LMP: 19 weeks 3 days Gestation Age by US: 19 weeks 0 days EDC by LMP: September 22, 2020 EDC by US: September 25, 2020 WEIGHT: 269 grams +/- 40 grams PERCENTILE WEIGHT: Not estimated BIOMETRIC PARAMETERS: BPD: 4.4 cm corresponding with 19 weeks 2 days HC: 15.9 cm corresponding with 18 weeks 5 days AC: 13.1 cm corresponding with 18 weeks 5 days FL: 3.0 cm corresponding with 19 weeks 3 days ANATOMY: CARDIAC: Four-chamber heart not well shown on this exam. UMBILICAL CORD: Normal 3 vessel cord. Normal cord insertion. BRAIN: Unremarkable. NOSE/LIPS: Unremarkable. SPINE: Unremarkable. EXTREMITIES: Unremarkable. STOMACH: Unremarkable. KIDNEYS: Unremarkable. BLADDER: Unremarkable. IMPRESSION: Normal OB ultrasound demonstrating a single viable fetus in variable position. Estimated gestational age of 19 weeks 0 days and EDC of September 25, 2020. There does appear to be a low-lying placenta. Four chamber heart not well visualized on this exam. Electronically signed by: Mitch Price MD (05/01/2020 5:49 PM) [id number]
== END ==
LOC: KCIC US 15:01
PROVIDERS: ATTEND Obstetrics & Gynecology
DX: O44.42 Low lying placenta NOS or without hemorrhage, second trimester (principal); Z3A.19 19 weeks gestation of pregnancy
CPT/HCPCS: 76805

== ENCOUNTER → 2020-05-02 | Outpatient (CLI) | payer OTHER ==
[2020-05-02 15:43] LABS: BASO % 0 % (0-3); EOS # 0.1 x10^3/uL (0.0-0.7); EOS % 1 % (0-3); HEMATOCRIT 24.4 % (36.0-47.0); HEMOGLOBIN 7.3 g/dL (12.0-15.5); LYMPH # 1.9 x10^3/uL (1.0-4.8); LYMPH % 22 % (24-48); MEAN CORPUSCULAR HEMOGLOBIN 18 pg (25-35); MEAN CORPUSCULAR HGB CONC 30 g/dL (31-37); MEAN CORPUSCULAR VOLUME 61 fL (79-100); MONO # 0.7 x10^3/uL (0.0-1.1); MONO % 8 % (0-9); NEUT % 69 % (31-73); PLATELET COUNT 357 x10^3/uL (140-400); RED CELL DISTRIBUTION WIDTH 18.5 % (11.5-14.5); WHITE BLOOD COUNT 8.6 x10^3/uL (4.0-11.0)
[2020-05-02 17:52] LABS: HYPOCHROMIA MOD; MICROCYTOSIS MARKED; OVALOCYTES FEW; PLT ESTIMATE ADEQUATE (ADEQUATE); POLYCHROMASIA SLIGHT
[2020-05-02 17:53] LABS: ANISOCYTOSIS SLIGHT
== END ==
LOC: ONCLAB 15:29
PROVIDERS: ATTEND Physician Assistant
DX: D50.9 Iron deficiency anemia, unspecified (principal)
CPT/HCPCS: 36415; 85025

== ENCOUNTER → 2020-05-30 | Outpatient (CLI) | payer OTHER ==
[2020-05-30 13:42] LABS: BASO % 0 % (0-3); EOS % 1 % (0-3); HEMATOCRIT 33.1 % (36.0-47.0); HEMOGLOBIN 10.4 g/dL (12.0-15.5); LYMPH # 1.2 x10^3/uL (1.0-4.8); LYMPH % 21 % (24-48); MEAN CORPUSCULAR HEMOGLOBIN 23 pg (25-35); MEAN CORPUSCULAR HGB CONC 31 g/dL (31-37); MEAN CORPUSCULAR VOLUME 74 fL (79-100); MONO # 0.4 x10^3/uL (0.0-1.1); MONO % 7 % (0-9); NEUT % 72 % (31-73); PLATELET COUNT 254 x10^3/uL (140-400); RED BLOOD COUNT 4.45 x10^6/uL (3.50-5.40); RED CELL DISTRIBUTION WIDTH 35.9 % (11.5-14.5); WHITE BLOOD COUNT 5.6 x10^3/uL (4.0-11.0)
[2020-05-30 13:59] LABS: ANISOCYTOSIS MOD; HYPOCHROMIA SLIGHT; MICROCYTOSIS MOD; PLT ESTIMATE ADEQUATE (ADEQUATE)
[2020-05-30 14:01] LABS: POLYCHROMASIA SLIGHT
== END ==
LOC: ONCLAB 13:14
PROVIDERS: ATTEND Internal Medicine Hematology & Oncology
DX: D50.9 Iron deficiency anemia, unspecified (principal); E53.8 Deficiency of other specified B group vitamins
CPT/HCPCS: 36415; 82607; 82728; 82746; 83540; 83550; 85025

== ENCOUNTER → 2020-06-07 | Outpatient (CLI) | payer OTHER ==
[2020-06-07 17:18] LABS: HEMATOCRIT 33.1 % (36.0-47.0); HEMOGLOBIN 10.4 g/dL (12.0-15.5); RED BLOOD COUNT 4.36 x10^6/uL (3.50-5.40); RED CELL DISTRIBUTION WIDTH 33.6 % (11.5-14.5); WHITE BLOOD COUNT 6.5 x10^3/uL (4.0-11.0)
[2020-06-07 17:34] LABS: ALBUMIN 2.7 g/dL (3.4-5.0); ALBUMIN/GLOBULIN RATIO 0.6 (1.0-1.7); CALCIUM 8.3 mg/dL (8.5-10.1); CREATININE 0.7 mg/dL (0.6-1.0); POTASSIUM 3.5 mmol/L (3.5-5.1); TOTAL BILIRUBIN 0.1 mg/dL (0.2-1.0); TOTAL PROTEIN 7.2 g/dL (6.4-8.2)
== END ==
LOC: LAB 15:53
PROVIDERS: ATTEND Obstetrics & Gynecology
DX: Z34.92 Encounter for supervision of normal pregnancy, unspecified, second trimester (principal); Z3A.24 24 weeks gestation of pregnancy
CPT/HCPCS: 36415; 80053; 82950; 85027

== ENCOUNTER 2020-06-30 20:31 | Emergency (ER) | payer OTHER ==
[~2020-06-30] VITALS: Ht 177.8 cm; Wt 109.0 kg
[2020-06-30] MEDS ORDERED: PRED50TA PO (21:10)
--- NOTE | 2020-06-30 21:10 | PHYS DOC ---
Past Medical History Past Medical History: Anemia, Diabetes-Type II, Hypertension, Other Additional Past Medical Histor: COMPARTMENT SYNDROME,CLUB FOOT (FRED GREGORY APRN) Past Surgical History: , Other Additional Past Surgical Histo: gastric sleeve, X5 (FRED GREGORY APRN) Smoking Status: Former Smoker Alcohol Use: None Drug Use: None (FRED GREGORY APRN) General Adult EDM: Chief Complaint: ALLERGIC REACTION HPI: HPI: Patient is a 35 year old female 6 para 5 currently 29 weeks presenting today complaining of an allergic reaction to shrimp. Patient states yesterday around 6 PM she had shrimp for dinner. She states she has had shrimp before with no issues. She states she developed slight throat itching which she did not think much of, she states she went to bed and woke up this morning and felt her face was swollen especially had around her eyes, she states she took Benadryl and has been taking Benadryl every 6 hours since then. She states she still feels her face is swollen. Denies any difficulty breathing swallowing or throat swelling. He is also complaining of a slight mild intermittent headache since this morning. She states the headache is on the frontal aspect. Denies any nausea vomiting. Denies any vaginal bleeding. She states she has an appointment with her REFUGE MANAGER on July 12, 2019 and was seen by the REFUGE MANAGER at the beginning of this month. (FRED GREGORY APRN) Review of Systems: Review of Systems: Constitutional: Denies fever or chills. [] Eyes: Reports eye swelling. Denies change in visual acuity. [] HENT: Reports lip, facial swelling . Denies nasal congestion or sore throat. [] Respiratory: Denies cough or shortness of breath. [] Cardiovascular: Denies chest pain or edema. [] GI: Reports . Denies abdominal pain, nausea, vomiting, bloody stools or diarrhea. [] : Denies dysuria. [] Musculoskeletal: Denies back pain or joint pain. [] Integument: Denies rash. [] Neurologic: Reports headache, denies focal weakness or sensory changes. [] Psychiatric: Denies depression or anxiety. [] (FRED GREGORY APRN) Heart Score: Risk Factors: Risk Factors: DM, Current or recent (<one month) smoker, HTN, HLP, family history of CAD, obesity. Risk Scores: Score 0 - 3: 2.5% MACE over next 6 weeks - Discharge Home Score 4 - 6: 20.3% MACE over next 6 weeks - Admit for Clinical Observation Score 7 - 10: 72.7% MACE over next 6 weeks - Early Invasive Strategies (FRED GREGORY APRN) Current Medications: Current Medications Medications (Trade) Dose Ordered Sig/Malina Start Time Stop Time Status Last Admin Dose Admin Prednisone (Prednisone) 60 mg 1X ONCE 06/30/20 21:00 06/30/20 21:01 UNV (FRED GREGORY APRN) Allergies: Allergies: Allergies Coded Allergies Type Severity Reaction Last Updated Verified No Known Drug Allergies 03/03/16 No (FRED GREGORY APRN) Physical Exam: PE: Constitutional: Well developed, well nourished, no acute distress, non-toxic appearance. [] HENT: Normocephalic, atraumatic, bilateral external ears normal, oropharynx moist, no oral exudates, nose normal. Airway is open. No significant facial swelling noted. Eyes: PERRLA, EOMI, conjunctiva normal, no discharge. [] Neck: Normal range of motion, no tenderness, supple, no stridor. [] Cardiovascular:Heart rate regular rhythm, no murmur [] Lungs & Thorax: Bilateral breath sounds clear to auscultation [] Abdomen: Gravid abdomen. Bowel sounds normal, soft, no tenderness, no masses, no pulsatile masses. [] Skin: Warm, dry, no erythema, no rash. [] Back: No tenderness, no CVA tenderness. [] Extremities: No tenderness, no cyanosis, no clubbing, ROM intact, no edema. [] Neurologic: Alert and oriented X 3, normal motor function, normal sensory function, no focal deficits noted. [] Psychologic: Affect normal, judgement normal, mood normal. [] (FRED GREGORY APRN) Current Patient Data: Vital Signs: Vital Signs Date Time Temp Pulse Resp B/P (MAP) Pulse Ox O2 Delivery O2 Flow Rate FiO2 06/30/20 20:33 98.3 77 20 137/82 (100) 99 Room Air 98.3 (FRED GREGORY APRN) EKG: EKG: [] (FRED GREGORY APRN) Radiology/Procedures: Radiology/Procedures: [] (FRED GREGORY APRN) Course & Med Decision Making: Course & Med Decision Making Pertinent Labs and Imaging studies reviewed. (See chart for details) This is a 35-year-old female patient currently 29 weeks 6 para 5 presenting to the ED today complaining of eating shrimp yesterday and developing throat itching which she did not do anything about. She went to bed and woke up this morning and stated she has facial swelling. She has taken some Benadryl several times today. There is no significant facial swelling noted on physical exam. Her airway is open. heart tones obtained by OB nurse. Given prednisone in the ED and discharged. Follow-up with REFUGE MANAGER as scheduled. Encourage not to eat shrimp for now. (FRED GREGORY APRN) Dragon Disclaimer: Dragon Disclaimer: This electronic medical record was generated, in whole or in part, using a voice recognition dictation system. (FRED GREGORY APRN) Departure Departure Impression: Primary Impression: Allergic reaction to food Qualified Codes: T78.1XXA - Other adverse food reactions, not elsewhere classified, initial encounter Additional Impression: Qualified Codes: Z3A.29 - 29 weeks gestation of Disposition: 01 DC HOME SELF CARE/HOMELESS Condition: STABLE Referrals: NO PCP (PCP) follow up with your OBGYN as scheduled Patient Instructions: Food Allergy Additional Instructions: You were evaluated in the emergency room. Please do not have shrimp anymore while . Take the prescribed prednisone for 4 more days. Take Benadryl as needed for allergic reaction symptoms. Follow-up with your REFUGE MANAGER as scheduled. Come back to the ED at any point symptoms worsen Scripts Prednisone (PREDNISONE) 50 Mg Tablet 50 MG PO DAILY, #4 TAB Prov: FRED GREGORY APRN 06/30/20 Attending Signature Attending Signature I have reviewed the PA/BRAID FOLDER's note and plan of care. I was available for consultation as needed during the patient's visit in the emergency department. I agree with the clinical impression, plan, and disposition. (ROGER MUSTAFA DO) FRED GREGORY APRN Jun 30, 2020 21:10 ROGER MUSTAFA DO Jul 01, 2020 03:07
[2020-06-30 21:18] VITALS: BP 132/73
[2020-06-30] MEDS ORDERED: predniSONE 20 MG TABLET PO ONE (21:30)
[2020-09-02] MEDS ORDERED: DOCU-109 PO (11:28)
[2020-09-02] MEDS ORDERED: IBUP-1060 PO (11:28)
[2020-09-02] MEDS ORDERED: OXYC1TAB15 PO (11:28)
== END 2020-06-30 21:20 | disposition home or self-care (01) ==
LOC: ER 20:31
DX: O26.893 Other specified pregnancy related conditions, third trimester (principal); T78.1XXA Other adverse food reactions, not elsewhere classified, initial encounter; O24.913 Unspecified diabetes mellitus in pregnancy, third trimester; O16.3 Unspecified maternal hypertension, third trimester; Z87.891 Personal history of nicotine dependence; Z3A.29 29 weeks gestation of pregnancy; Y92.89 Other specified places as the place of occurrence of the external cause
CPT/HCPCS: 99283; J7512

== ENCOUNTER → 2020-08-10 | Outpatient (CLI) | payer OTHER ==
[~2020-08-10] MED LIST changes: +DOCU-109 PO; +IBUP-1060 PO
[2020-08-10 10:24] LABS: BASO % 0 % (0-3); EOS # 0.1 x10^3/uL (0.0-0.7); EOS % 1 % (0-3); HEMATOCRIT 35.5 % (36.0-47.0); LYMPH # 1.2 x10^3/uL (1.0-4.8); LYMPH % 18 % (24-48); MEAN CORPUSCULAR HEMOGLOBIN 28 pg (25-35); MEAN CORPUSCULAR HGB CONC 34 g/dL (31-37); MEAN CORPUSCULAR VOLUME 84 fL (79-100); MONO # 0.4 x10^3/uL (0.0-1.1); MONO % 7 % (0-9); NEUT # 4.6 x10^3/uL (1.8-7.7); NEUT % 73 % (31-73); PLATELET COUNT 193 x10^3/uL (140-400); RED BLOOD COUNT 4.24 x10^6/uL (3.50-5.40); RED CELL DISTRIBUTION WIDTH 23.2 % (11.5-14.5); WHITE BLOOD COUNT 6.3 x10^3/uL (4.0-11.0)
== END ==
LOC: ONCLAB 09:58
PROVIDERS: ATTEND Internal Medicine Hematology & Oncology
DX: D50.9 Iron deficiency anemia, unspecified (principal)
CPT/HCPCS: 36415; 82728; 83540; 83550; 85025

== ENCOUNTER → 2020-08-27 | Outpatient (CLI) | payer OTHER | LOC: LAB 12:05 | PROVIDERS: ATTEND Obstetrics & Gynecology | DX: Z01.812 Encounter for preprocedural laboratory examination (principal); Z20.822 Contact with and (suspected) exposure to COVID-19; O00.01 Abdominal pregnancy with intrauterine pregnancy; Z3A.37 37 weeks gestation of pregnancy | CPT/HCPCS: U0003 ==

== ENCOUNTER 2020-08-31 10:23 | Inpatient (IN) | payer OTHER ==
[~2020-08-31] VITALS: Ht 170.2 cm; Wt 121.1 kg
[~2020-08-31 10:23] MED LIST changes: -DOCU-109 PO; -IBUP-1060 PO
[2020-08-31] MEDS ORDERED: CITRIC ACID/SODIUM CITRATE 30 ML SOLUTION. PO ONE (10:45)
--- NOTE | 2020-08-31 10:51 | PDOC1 ---
[facility] H&P Date of Admission: Date of Admission: Aug 31, 2020 at 10:23 History of Present Illness: EDC: 09/20/20 LMP: 12/15/19 35y @ 37.1 by L=6 presents for scheduled C/S. On the pts anatomy u/s (05/01/21) it was reported that the placenta was anterior low-lying. Due to the pts multiple C/Ss and the anterior placenta she was referred to [facility] to r/o an acerta. The level II u/s did not reveal a low-lying placenta but instead was significant for an anterior thin lower uterine segment. The recommended delivery at 37wks based on this finding. The pts was also complicated by a Hgb of 7.3 on her initial labs. This was secondary to her gastric bypass and inability to absorb Fe orally. She was referred to Hem/Onc who administered IV Fe on two occasions. Her Hgb was last checked 08/10/20 and had found to increase to 12.0 after the transfusions. The pt also reported that with the last the baby had some antibody issue that kept her there longer. From her past records it was revealed that the baby had ABO blood group incompatibility requiring intense phototherapy, hyperbilirubinemia, hepatosplenomegaly. PMH: DM (diet control) and HTN prior to bypass PSH: Gastric sleeve (10/2017), C/S x 4 (04/2016, 07/2006, 04/2012, 01/2014), clubfoot x 7, compartment synd left leg 2003 Meds: FeSO4, PNV All: NKDA OBHx: TSVD x 1, TC/S x 4, SAB x 2 SH: no tob, no EtOH FH: CA, DM, HTN, liver dz Allergies: Coded Allergies: No Known Drug Allergies (Unverified , 03/03/16) Physical Exam: PE: GENERAL: No apparent distress. Alert and oriented. HEENT: Head normocephalic, atraumatic. NECK: Supple LUNGS: Clear to auscultation. HEART: RRR, S1, S2 present, pulses intact ABDOMEN: Soft, positive bowel sounds. EXTREMITIES: No cyanosis or edema. NEUROLOGIC: Normal speech, normal tone PSYCHIATRIC: Normal affect, normal mood. SKIN: No ulceration. FHT: 150s+acels/no decels/mLTV [place]: quiet Assessment & Plan: A/P 35y @ 37.1 by L=6 1.) Prev C/S x 4 - scheduled for RLTCS/BTL 2.) Anterior thin lower uterine segment [facility] recommend delivery at 37wks 3.) H/o gastric bypass 4.) Anemia - 2/2 gastric bypass, seeing HemOnc, Hgb 7.3 -> 10.4 -> 12.0, s/p IV Fe x 2 5.) DPS - consent signed 06/22/20 6.) TDAP given - 07/13/20 7.) H/o ABO blood group incompatibility - last 8.) Fetus cat I FHT 9.) GBS neg ROGER DIAZ MD Aug 31, 2020 10:51
[2020-08-31 11:13] VITALS: BP 127/92
[2020-08-31 11:16] LABS: BASO % 0 % (0-3); EOS # 0.1 x10^3/uL (0.0-0.7); EOS % 1 % (0-3); HEMATOCRIT 38.5 % (36.0-47.0); HEMOGLOBIN 13.1 g/dL (12.0-15.5); LYMPH # 1.5 x10^3/uL (1.0-4.8); LYMPH % 19 % (24-48); MEAN CORPUSCULAR HEMOGLOBIN 29 pg (25-35); MEAN CORPUSCULAR HGB CONC 34 g/dL (31-37); MEAN CORPUSCULAR VOLUME 86 fL (79-100); MONO # 0.7 x10^3/uL (0.0-1.1); MONO % 8 % (0-9); NEUT # 5.8 x10^3/uL (1.8-7.7); NEUT % 71 % (31-73); PLATELET COUNT 205 x10^3/uL (140-400); RED BLOOD COUNT 4.49 x10^6/uL (3.50-5.40); RED CELL DISTRIBUTION WIDTH 18.1 % (11.5-14.5); WHITE BLOOD COUNT 8.2 x10^3/uL (4.0-11.0)
[2020-08-31] MEDS ORDERED: OXYTOCIN 10 UNIT/ML VIAL. ONE (11:31)
[2020-08-31] MEDS ORDERED: fentaNYL PF VIAL 100 MCG/2 ML VIAL ONE (11:31)
[2020-08-31] MEDS ORDERED: MORPHINE PF 10 MG/10 ML AMPUL. ONE (11:31)
[2020-08-31] MEDS ORDERED: ONDANSETRON PF 4 MG/2 ML VIAL. ONE (11:31)
[2020-08-31] MEDS: IV RINGERS,LACTATED 1000ML 1,000 ML IV PRN ×2 (11:50→19:54)
[2020-08-31] MEDS ORDERED: diphenhydrAMINE 50 MG/ML VIAL ONE (14:35)
--- NOTE | 2020-08-31 15:29 | PDOC4 ---
OPERATIVE NOTE: PreOp Dx: 1.) IUP @ 37.1 by L=6, 2.) Prev C/S x 4, 3.) Anterior thin lower uterine segment [facility] recommend delivery at 37wks, 4.) H/o gastric bypass, 5.) Anemia, 6.) DPS, 7.) H/o ABO blood group incompatibility, 8.) GBS neg PostOp Dx: same Procedure: RTCS/BTL Surgeon: Aaron Diaz Anesthesia: Spinal EBL: 900 cc Fluids: 2500 cc UOP: 375 cc Complications: None Fingings: viable male delivered at 1316. Wt 6 lb 4.8 oz. APGARS 8/9. Path: Cord blood, placenta ROGER DIAZ MD Aug 31, 2020 15:29
[2020-08-31] MEDS: KETOROLAC 30 MG/ML VIAL. IV PRN ×2 (15:30→22:35)
[2020-08-31] MEDS ORDERED: MMR per PROTOCOL. MC PRN (16:30)
[2020-08-31] MEDS ORDERED: OXYTOCIN 30 UNIT/500 ML PREMIX 500 ML IV PRN (16:30)
[2020-08-31] MEDS ORDERED: ACETAMINOPHEN 325 MG TABLET. PO PRN (16:30)
[2020-08-31] MEDS ORDERED: TDaP (Adacel) per PROTOCOL. MC PRN (16:30)
[2020-08-31] MEDS ORDERED: BENZOCAINE 20% TOPICAL AEROSOL SPRAY 57GM CAN. TP PRN (16:30)
[2020-08-31] MEDS ORDERED: diphenhydrAMINE ORAL ELIXIR 12.5 MG/5 ML ML PO PRN (16:30)
[2020-08-31] MEDS ORDERED: KETOROLAC 30 MG/ML VIAL. IVP PRN (16:30)
[2020-08-31] MEDS ORDERED: 0.9 % SODIUM CHLORIDE 10 ML DISP.SYRIN. IV PRN (16:30)
[2020-08-31 18:15] VITALS: BP 112/73
--- NOTE | 2020-08-31 18:42 | OP ---
DATE OF SURGERY: 08/31/2020 PREOPERATIVE DIAGNOSES: 1. Intrauterine at 37 weeks and 1 day by LMP equal to a 6-week ultrasound. 2. Previous section x 4. 3. Anterior thin lower uterine segment with [facility] at 37 weeks. 4. History of gastric bypass. 5. Anemia. 6. Desires permanent sterilization. 7. History of ABO blood group incompatibility. 8. Group B Streptococcus negative. POSTOPERATIVE DIAGNOSES: 1. Intrauterine at 37 weeks and 1 day by LMP equal to a 6-week ultrasound. 2. Previous section x 4. 3. Anterior thin lower uterine segment with recommendations from [facility] for delivery at 37 weeks. 4. History of gastric bypass. 5. Anemia. 6. Desires permanent sterilization. 7. History of ABO blood group incompatibility. 8. Group B Streptococcus negative. PROCEDURE: Repeat low transverse with bilateral tubal ligation. SURGEON: Scott Diaz MD. ANESTHESIA: Spinal. ESTIMATED BLOOD LOSS: 900 mL. FLUIDS: 2500 mL. URINE OUTPUT: 375 mL. COMPLICATIONS: None. FINDINGS: Viable male infant delivered at 13:16, weighing 6 pounds 4.8 ounces with Apgars of 8 and 9. PATHOLOGY: Cord blood and placenta. DESCRIPTION OF PROCEDURE: The patient was taken to the operating room where spinal anesthesia was placed without difficulty. The patient was prepped and draped in normal sterile fashion with a left lateral tilt. A Pfannenstiel skin incision was made through her previous incision and carried down to the underlying layer of fascia. The fascia was then nicked in the midline. Fascial incision was then extended laterally with Clemons scissors. Superior aspect of the fascial incision was then grasped with Ephraim clamps, elevated and underlying rectus muscle was dissected off with the scalpel. Attention was then turned to the inferior aspect of fascial incision, which again was grasped with Ephraim clamps, elevated and underlying rectus muscle was dissected with Clemons scissors. The midline of the rectus muscle was then identified and to allow for the peritoneum to be grasped with 2 hemostats. The peritoneum was then tented up and entered sharply with Metzenbaum scissors. The peritoneal incision was then extended superiorly and inferiorly with good visualization of the bladder with traction and countertraction. At that point, the Socrates ring was then placed in the abdomen to better visualize the lower uterine segment. A bladder flap was then created with Metzenbaum scissors. Lower uterine segment was somewhat thin, but no uterine window was seen. The lower uterine segment was then incised in transverse fashion with the scalpel. The incision was then extended with traction and countertraction. At that point, the 's head was then flexed and brought to the hysterotomy. The rest of the infant was delivered atraumatically. The nose and mouth were bulb suctioned. At that point, the cord was double clamped and cut. Infant was handed over to the awaiting almond blancher. Placenta was then removed manually and the uterus was cleared of all clots and debris. The uterine incision was then repaired with #1 chromic in a running locked fashion. Second layer of the same suture was used to imbricate. Good hemostasis was noted. At that point, the uterus was attempted to be exteriorized. The uterus was somewhat larger than the opening created for the baby. Eventually, a partial Maylard was performed on the right and left to create the space necessary for the uterus could be exteriorized. At that point, the left tube was grasped with a Ranjana clamp. An opening was created in the avascular portion of the mesosalpinx. Two free ties of 0 plain gut were then used to ligate the tube. This 2 cm segment of the tube was then excised and sent to pathology. Attention was then turned to the right tube, which again was grasped with a Ranjana clamp. Avascular portion of the mesosalpinx was then opened with 2 free ties of 0 plain gut and 2 free ties of 0 plain gut were then used to ligate a 3 cm segment of the tube. This was then sent to pathology. The tubes were hemostatic. At that point, the uterus was returned to the abdomen. This was also difficult due to the size, but eventually the uterus was able to be returned with some additional force. Attention was then returned to the hysterotomy, which was hemostatic. At that point, the gutters were copiously irrigated and cleared of all clots and debris. At that point, the peritoneum was reapproximated with 2-0 Vicryl in a running fashion. The partial Maylard on the right and left were repaired with a [id number] stitch returning the cut muscle together. Once this was completed on each side, the muscle was reapproximated with 2-0 Vicryl in a running fashion. At that point, the fascia was then closed with 0 Vicryl in a running fashion. The skin was then closed with 3-0 Monocryl in a subcuticular manner. Sponges, laps, and needles were correct x 3. Two grams of Ancef were given prior to the procedure. The patient was taken to the recovery room in stable condition. SCOTT DIAZ MD DR: JERICHO/vasquez JOB#: [id number] / [id number] LEODAN
[2020-08-31 18:45] VITALS: BP 115/67
[2020-08-31 20:00] VITALS: BP 120/79
[2020-08-31] MEDS: FERROUS SULFATE 325 MG TABLET. PO SCH (20:00)
[2020-09-01 00:01] VITALS: BP 126/66
[2020-09-01] MEDS: IV RINGERS,LACTATED 1000ML 1,000 ML IV PRN (03:39)
[2020-09-01 04:00] VITALS: BP 120/70
[2020-09-01] MEDS: KETOROLAC 30 MG/ML VIAL. IV PRN (05:59)
[2020-09-01 08:05] VITALS: BP 126/73
[2020-09-01 08:35] LABS: HEMATOCRIT 33.3 % (36.0-47.0); HEMOGLOBIN 11.1 g/dL (12.0-15.5); RED BLOOD COUNT 3.82 x10^6/uL (3.50-5.40); RED CELL DISTRIBUTION WIDTH 17.7 % (11.5-14.5); WHITE BLOOD COUNT 7.8 x10^3/uL (4.0-11.0)
[2020-09-01] MEDS: FERROUS SULFATE 325 MG TABLET. PO SCH ×2 (08:57→16:49)
[2020-09-01] MEDS: PRENATAL MULTIVITAMIN TABLET. PO SCH (08:58)
[2020-09-01] MEDS ORDERED: MULTIVITAMIN with MINERAL TABLET. PO SCH (09:00)
[2020-09-01] MEDS: oxyCODONE/APAP 5/325 1 TAB TABLET PO PRN ×4 (10:23→21:06)
--- NOTE | 2020-09-01 11:30 | PDOC ---
FOOD AND BEVERAGE ASSISTANT MANAGER PROGRESS NOTE Date of Service: DATE: 09/01/20 TIME: 11:29 Subjective: Pt with good pain control. Robson PO. Voiding. Minimal lochia. Objective: Vital Signs: Vital Signs Date Time Temp Pulse Resp B/P (MAP) Pulse Ox O2 Delivery O2 Flow Rate FiO2 08/31/20 11:13 98.2 64 20 127/92 (104) 98 98.2 09/01/20 10:23 Room Air Vital Signs Date Time Temp Pulse Resp B/P (MAP) Pulse Ox O2 Delivery O2 Flow Rate FiO2 09/01/20 10:23 20 98 Room Air 09/01/20 04:00 98.5 79 120/70 (87) 98.5 Labs: Laboratory Tests Test 09/01/20 07:00 White Blood Count 7.8 x10^3/uL (4.0-11.0) Red Blood Count 3.82 x10^6/uL (3.50-5.40) Hemoglobin 11.1 g/dL (12.0-15.5) L Hematocrit 33.3 % (36.0-47.0) L Mean Corpuscular Volume 87 fL (79-100) Mean Corpuscular Hemoglobin 29 pg (25-35) Mean Corpuscular Hemoglobin Concent 33 g/dL (31-37) Red Cell Distribution Width 17.7 % (11.5-14.5) H Platelet Count 176 x10^3/uL (140-400) Laboratory Tests 09/01/20 07:00 Laboratory Tests 09/01/20 07:00 Physical Exam: GENERAL: No apparent distress. Alert and oriented. HEENT: Head normocephalic, atraumatic. NECK: Supple LUNGS: Clear to auscultation. HEART: RRR, S1, S2 present, pulses intact ABDOMEN: Soft, positive bowel sounds. EXTREMITIES: No cyanosis or edema. NEUROLOGIC: Normal speech, normal tone PSYCHIATRIC: Normal affect, normal mood. SKIN: No ulceration. FFNT below umb No C/C/E Inc: dressing dry Assessment & Plan: A/P 35y POD #1 s/p RLTCS/BTL 1.) PO doing well 2.) H/o gastric bypass 3.) Anemia - 2/2 gastric bypass, seeing HemOnc, Hgb 7.3 -> 10.4 -> 12.0, s/p IV Fe x 2 over the course of the . Hgb 13.1 on admission -> 11.1 4.) TDAP given - 07/13/20 5.) H/o ABO blood group incompatibility - last 6.) Cont PO care ROGER DIAZ MD Sep 01, 2020 11:29
[2020-09-01] MEDS: IBUPROFEN 400 MG TABLET. PO PRN ×2 (12:48→21:05)
[2020-09-01 14:00] VITALS: BP 110/65
[2020-09-01] MEDS: DOCUSATE SODIUM 100 MG CAPSULE. PO PRN (16:49)
[2020-09-01 19:15] VITALS: BP 127/84
--- NOTE | 2020-09-01 21:05 | NUR ---
percocet 2 tabs given not one tab
[2020-09-02 00:05] VITALS: BP 128/74
[2020-09-02] MEDS: oxyCODONE/APAP 5/325 1 TAB TABLET PO PRN ×3 (02:09→12:25)
[2020-09-02 05:07] VITALS: BP 138/78
[2020-09-02] MEDS: FERROUS SULFATE 325 MG TABLET. PO SCH (08:10)
[2020-09-02] MEDS: PRENATAL MULTIVITAMIN TABLET. PO SCH (08:10)
[2020-09-02] MEDS: DOCUSATE SODIUM 100 MG CAPSULE. PO PRN (08:10)
[2020-09-02] MEDS: IBUPROFEN 400 MG TABLET. PO PRN (08:11)
[2020-09-02 08:18] VITALS: BP 125/86
[2020-09-02] MEDS ORDERED: IBUP-1060 PO (11:28)
[2020-09-02] MEDS ORDERED: DOCU-109 PO (11:28)
[2020-09-02] MEDS ORDERED: OXYC1TAB15 PO (11:28)
--- NOTE | 2020-09-02 11:31 | PDOC ---
ACQUISITION SPECIALIST PROGRESS NOTE Date of Service: DATE: 09/02/20 TIME: 11:29 Subjective: Pt with good pain control. Robson PO. Voiding. Minimal lochia. Objective: Vital Signs: Vital Signs Date Time Temp Pulse Resp B/P (MAP) Pulse Ox O2 Delivery O2 Flow Rate FiO2 09/01/20 08:05 97.8 72 20 126/73 (90) 99 Room Air 97.8 Vital Signs Date Time Temp Pulse Resp B/P (MAP) Pulse Ox O2 Delivery O2 Flow Rate FiO2 09/02/20 09:18 20 Room Air 09/02/20 08:18 98.7 78 125/86 (99) 98 98.7 Physical Exam: GENERAL: No apparent distress. Alert and oriented. HEENT: Head normocephalic, atraumatic. NECK: Supple LUNGS: Clear to auscultation. HEART: RRR, S1, S2 present, pulses intact ABDOMEN: Soft, positive bowel sounds. EXTREMITIES: No cyanosis or edema. NEUROLOGIC: Normal speech, normal tone PSYCHIATRIC: Normal affect, normal mood. SKIN: No ulceration. FFNT below umb No C/C/E Inc: C/D/I Assessment & Plan: A/P 35y POD #2 s/p RLTCS/BTL 1.) PO doing well 2.) H/o gastric bypass 3.) Anemia - 2/2 gastric bypass, seeing HemOnc, Hgb 7.3 -> 10.4 -> 12.0, s/p IV Fe x 2 over the course of the . Hgb 13.1 on admission -> 11.1 4.) TDAP given - 07/13/20 5.) H/o ABO blood group incompatibility - last 6.) D/c home ROGER DIAZ MD Sep 02, 2020 11:31
--- NOTE | 2020-09-02 11:59 | DS ---
DATE OF DISCHARGE: 09/02/2020 ADMISSION DIAGNOSES: 1. Intrauterine at 37 weeks and 1 day by LMP equal to a 6-week ultrasound. 2. Previous section x 4. 3. Anterior thin lower uterine segment, found on level 2 ultrasound with MFM recommendations of delivery at 37 weeks. 4. History of gastric bypass. 5. Anemia. 6. Desires permanent sterilization. 7. History of ABO blood group incompatibility. 8. Group B Streptococcus negative. DISCHARGE DIAGNOSES: 1. Intrauterine at 37 weeks and 1 day by LMP equal to a 6-week ultrasound. 2. Previous section x 4. 3. Anterior thin lower uterine segment, found on level 2 ultrasound with MFM recommendations of delivery at 37 weeks. 4. History of gastric bypass. 5. Anemia. 6. Desires permanent sterilization. 7. History of ABO blood group incompatibility. 8. Group B Streptococcus negative. PROCEDURE: Repeat low transverse with bilateral tubal ligation. BRIEF HOSPITAL COURSE: The patient is a 35-year-old 8, para 5-0-2-5 who presented to Labor and Delivery at 37 weeks and 1 day by LMP equal to a 6-week ultrasound for a scheduled . On the patient's anatomy ultrasound early in her in April, she was reported as having an anterior low lying placenta. Due to the patient's multiple C-sections and anterior placenta, the patient was referred to [facility] to rule out placenta accreta. On the level 2 ultrasound, they did not see a low lying placenta, but instead they saw thin anterior lower uterine segment. Based on these findings, they recommended delivery at 37 weeks. The patient's was also complicated by anemia with hemoglobin of 7.3 on her initial labs. This was thought to be secondary to her inability to absorb iron due to the gastric bypass. The patient was referred to Hematology/Oncology for IV infusion, which she received on 2 occasions. On the most recent hemoglobin check, she was found to be 12.0. The patient also reported having an antibody issue with the baby with the last and was ultimately found to be ABO blood incompatibility requiring intense phototherapy, hyperbilirubinemia and hepatosplenomegaly. The patient underwent a scheduled on 08/31/2020, see operative note for full detail. By postoperative day #2, the patient was meeting all discharge criteria and subsequently discharged home. Of note, the patient's hemoglobin on admission was 13.1 and after delivery was found to be 11.1. The baby had the same blood type as mom, so no ABO incompatibility occurred. DISCHARGE INSTRUCTIONS: The patient was told not to lift anything greater than 20 pounds, have pelvic rest for 6 weeks, not to drive on narcotics. CALL IF: The patient was to call if she had fevers, chills, nausea, vomiting, abdominal pain or any additional questions or concerns. FOLLOWUP APPOINTMENT: The patient is to follow up on 09/07 at 10:00 a.m. for an incision check. DISCHARGE MEDICATIONS: The patient was given a prescription for Percocet 5, 15 pills; Motrin 800 mg, 30 pills and Colace 100 mg, 30 pills. ROGER DIAZ MD DR: JERICHO/nts JOB#: [id number] / [id number]
[2020-09-02 12:20] VITALS: BP 122/72
[2020-09-02 14:10] VITALS: BP 122/71
--- NOTE | 2020-09-02 14:25 | NUR ---
Pt escorted to exit per w/c in stable post condition with son in [facility]. Accompanied by FOB and 2 RN's
--- NOTE | 2020-09-04 14:17 | PATHOLOGY ---
[facility] Accession Number: [id number] . 01 Material submitted: . fallopian tube - LEFT AND RIGHT FALLOPIAN TUBE. Modifiers: left, right . 01 Clinical history: . REPEAT SECTION TERM IUP REASON FOR VISIT - INDUCTION HISTORY - ; RPT C15 AT 37. 1 WK FOR THINNING LOWER UTERINE SEGMENT . 02 Diagnosis: Bilateral tubal ligation: - Segments (2) of fallopian tube confirmed, with focal subserosal stromal decidualization and cystic Walthard rests. (JPM:sara; 09/04/2020) MBR 09/04/2020 1353 Local . 02 Electronically signed: . Myron Willard MD, Pathologist NPI- [id number] . 01 Gross description: . The specimen is received in formalin, labeled "Risa Harper left and right fallopian tubes" and consist of 2 soft pink-pendleton unremarkable segments of fallopian tube measuring 3.5 and 4.2 cm in length with average diameters of 0.7 cm. The shorter segment is inked black. Word Processor sections of each submitted in A1. ([facility]; 09/03/2020) JOYCE/JOYCE 09/03/2020 2215 Local . 02 Pathologist provided ICD-10: O82 . 02 CPT . 012791 Specimen Comment: A courtesy copy of this report has been sent to [phone] Specimen Comment: Report sent to Performed at: 01 [facility] [address] [id number] MD Drake Ramirez MD Phone: [phone] Performed at: 02 [facility] [address] [place], [place] [id number] MD Myron Willard MD Phone: [phone]
== END 2020-09-02 15:23 | disposition home or self-care (01) | DRG 783 ==
LOC: 3 SO LND 10:23
PROVIDERS: ADMIT Obstetrics & Gynecology; ATTEND Obstetrics & Gynecology
PROC: 10D00Z1 Extraction of Products of Conception, Low, Open Approach (ICD-10-PCS; principal; 2020-08-31)
PROC: 0UB70ZZ Excision of Bilateral Fallopian Tubes, Open Approach (ICD-10-PCS; 2020-08-31)
DX: O34.211 Maternal care for low transverse scar from previous cesarean delivery (principal); O24.32 Unspecified pre-existing diabetes mellitus in childbirth; O44.43 Low lying placenta NOS or without hemorrhage, third trimester; D64.9 Anemia, unspecified; O99.02 Anemia complicating childbirth; O99.844 Bariatric surgery status complicating childbirth; Z30.2 Encounter for sterilization; Z37.0 Single live birth; Z3A.37 37 weeks gestation of pregnancy; E11.9 Type 2 diabetes mellitus without complications; O16.4 Unspecified maternal hypertension, complicating childbirth
CPT/HCPCS: 36415; 85025; 85027; 86592; 86850; 86900; 86901; J0690; J1200; J1885; J2274; J2405; J2590; J3010; J7120; G0378

== ENCOUNTER 2021-02-08 12:45 | Emergency (ER) | payer OTHER ==
[~2021-02-08] VITALS: Ht 170.2 cm; Wt 112.0 kg
[~2021-02-08 12:45] MED LIST changes: +DOCU-109 PO; +IBUP-1060 PO
[2021-02-08 12:49] VITALS: BP 125/70
--- NOTE | 2021-02-08 13:22 | RAD ---
XR FOOT_RIGHT 3 VIEWS Clinical indications: Reason: right foot injured, stepped into a hole yesterday / Spl. Instructions: / History: Findings: No acute fracture or dislocation or osteolytic process is evident. 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 There is a mortise ankle joint effusion with 6 mm radiopaque loose body anteriorly. 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 No periosteal reaction is evident. IMPRESSION: No acute osseous abnormality is evident. Electronically signed by: Markie Veloz MD (02/08/2021 1:20 PM) [id number]
--- NOTE | 2021-02-08 13:29 | PHYS DOC ---
Past Medical History Past Medical History: Anemia, Diabetes-Type II, Hypertension, Other Additional Past Medical Histor: COMPARTMENT SYNDROME,CLUB FOOT Past Surgical History: , Tubal ligation, Other Additional Past Surgical Histo: gastric sleeve, X5 Smoking Status: Former Smoker Alcohol Use: None Drug Use: None General Adult EDM: Chief Complaint: FOOT INJURY PAIN HPI: HPI: Patient is a 35 year old female who present to ER for evaluation of right foot pain. Patient says he was walking yesterday, stepped into a hole by accident, twisted her assist second, third and fourth toes on the right foot. Patient complained of pain with walking. Patient denies any pain in her right ankle or her knee area. Review of Systems: Review of Systems: Constitutional: Denies fever or chills. [] Eyes: Denies change in visual acuity. [] HENT: Denies nasal congestion or sore throat. [] Respiratory: Denies cough or shortness of breath. [] Cardiovascular: Denies chest pain or edema. [] GI: Denies abdominal pain, nausea, vomiting, bloody stools or diarrhea. [] : Denies dysuria. [] Musculoskeletal: Denies back pain or joint pain. [] Integument: Denies rash. [] Neurologic: Denies headache, focal weakness or sensory changes. [] Endocrine: Denies polyuria or polydipsia. [] Lymphatic: Denies swollen glands. [] Psychiatric: Denies depression or anxiety. [] Heart Score: C/O Chest Pain: N/A Risk Factors: Risk Factors: DM, Current or recent (<one month) smoker, HTN, HLP, family history of CAD, obesity. Risk Scores: Score 0 - 3: 2.5% MACE over next 6 weeks - Discharge Home Score 4 - 6: 20.3% MACE over next 6 weeks - Admit for Clinical Observation Score 7 - 10: 72.7% MACE over next 6 weeks - Early Invasive Strategies Allergies: Allergies: Allergies Coded Allergies Type Severity Reaction Last Updated Verified No Known Drug Allergies 03/03/16 No Physical Exam: PE: Constitutional: Well developed, well nourished, no acute distress, non-toxic appearance. [] Skin: Warm, dry, no erythema, no rash. [] Back: No tenderness, no CVA tenderness. [] Extremities: Right foot is tender to palpation at second, third, fourth toe. No open wound, right ankle is nontender to palpation Neurologic: Alert and oriented X 3, normal motor function, normal sensory function, no focal deficits noted. [] Psychologic: Affect normal, judgement normal, mood normal. [] Current Patient Data: Vital Signs: Vital Signs Date Time Temp Pulse Resp B/P (MAP) Pulse Ox O2 Delivery O2 Flow Rate FiO2 02/08/21 12:49 98.4 80 18 125/70 (88) 98 Room Air 98.4 EKG: EKG: [] Radiology/Procedures: Radiology/Procedures: [][facility] [address] [place] [address] IMAGING REPORT Signed PATIENT: BHARAT ALBARADO I ACCOUNT: [id number] : 1985 LOCATION: ER AGE: 35 SEX: F EXAM STATUS: PRE ER ORD. PHYSICIAN: LEILA WALKER DO REASON: right foot injured, stepped into a hole yesterday PROCEDURE: FOOT RIGHT 3V XR FOOT_RIGHT 3 VIEWS Clinical indications: Reason: right foot injured, stepped into a hole yesterday / Spl. Instructions: / History: Findings: No acute fracture or dislocation or osteolytic process is evident. 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 There is a mortise ankle joint effusion with 6 mm radiopaque loose body anteriorly. Mild primary degenerative osteoarthritis of the first metatarsal phalangeal joint is seen. No periosteal reaction is evident. IMPRESSION: No acute osseous abnormality is evident. Electronically signed by: Juan Veloz MD (02/08/2021 1:20 PM) [id number] DICTATED and SIGNED BY: JUAN VELOZ MD DATE: 02/08/21 [id number] Course & Med Decision Making: Course & Med Decision Making Pertinent Labs and Imaging studies reviewed. (See chart for details) Patient is a 34-year-old female who present to ER due to right foot injury. X- ray did not show any acute problem. Patient sustained a sprain of her right second third and fourth toe. Patient will be discharged home. Dragon Disclaimer: Dragon Disclaimer: This electronic medical record was generated, in whole or in part, using a voice recognition dictation system. Departure Departure Impression: Primary Impression: Sprain of toe, second, right Additional Impressions: Sprain of toe, third, right Sprain of toe, fourth, right Disposition: 01 HOME / SELF CARE / HOMELESS Condition: STABLE Referrals: NO PCP (PCP) Follow-up with your doctor for reevaluation if needed. Patient Instructions: Foot Sprain Additional Instructions: Thank you for visiting our Emergency Department. We appreciate you trusting us with your care. If any additional problems come up don't hesitate to return to visit us. Please follow up with your primary care provider so they can plan additional care if needed and know about the problem that you had. If symptoms worsen come back to the Emergency Department. Any concerning symptoms that start such as chest pain, shortness of air, weakness or numbness on one side of the b melani, running high fevers or any other concerning symptoms return to the ER. LEILA WALKER DO Feb 08, 2021 13:29
== END 2021-02-08 13:35 | disposition home or self-care (01) ==
LOC: ER 12:45
DX: S93.504A Unspecified sprain of right lesser toe(s), initial encounter (principal); E11.9 Type 2 diabetes mellitus without complications; I10 Essential (primary) hypertension; Z87.891 Personal history of nicotine dependence; X50.9XXA Other and unspecified overexertion or strenuous movements or postures, initial encounter; Y93.01 Activity, walking, marching and hiking; Y92.89 Other specified places as the place of occurrence of the external cause; Y99.8 Other external cause status
CPT/HCPCS: 73630; 99283

== ENCOUNTER → 2021-02-14 | Outpatient (CLI) | payer OTHER ==
[2021-02-08 12:49] VITALS: BP 125/70
[2021-02-14 15:06] LABS: BASO % 0 % (0-3); EOS # 0.2 x10^3/uL (0.0-0.7); EOS % 3 % (0-3); HEMATOCRIT 35.9 % (36.0-47.0); HEMOGLOBIN 11.8 g/dL (12.0-15.5); LYMPH % 31 % (24-48); MEAN CORPUSCULAR HEMOGLOBIN 27 pg (25-35); MEAN CORPUSCULAR HGB CONC 33 g/dL (31-37); MEAN CORPUSCULAR VOLUME 81 fL (79-100); MONO # 0.5 x10^3/uL (0.0-1.1); MONO % 8 % (0-9); NEUT # 3.8 x10^3/uL (1.8-7.7); NEUT % 58 % (31-73); PLATELET COUNT 308 x10^3/uL (140-400); RED BLOOD COUNT 4.46 x10^6/uL (3.50-5.40); RED CELL DISTRIBUTION WIDTH 14.1 % (11.5-14.5); WHITE BLOOD COUNT 6.6 x10^3/uL (4.0-11.0)
== END ==
LOC: ONCLAB 14:37
PROVIDERS: ATTEND Internal Medicine Hematology & Oncology
DX: D50.9 Iron deficiency anemia, unspecified (principal)
CPT/HCPCS: 36415; 82607; 82728; 82746; 83540; 83550; 85025

== ENCOUNTER → 2021-05-21 | Outpatient (CLI) | payer OTHER ==
[2021-05-21 14:08] LABS: BASO % 0 % (0-3); EOS # 0.1 x10^3/uL (0.0-0.7); EOS % 2 % (0-3); HEMATOCRIT 37.2 % (36.0-47.0); LYMPH # 1.3 x10^3/uL (1.0-4.8); LYMPH % 21 % (24-48); MEAN CORPUSCULAR HEMOGLOBIN 24 pg (25-35); MEAN CORPUSCULAR HGB CONC 32 g/dL (31-37); MEAN CORPUSCULAR VOLUME 75 fL (79-100); MONO # 0.5 x10^3/uL (0.0-1.1); MONO % 7 % (0-9); NEUT # 4.6 x10^3/uL (1.8-7.7); NEUT % 71 % (31-73); PLATELET COUNT 330 x10^3/uL (140-400); RED BLOOD COUNT 4.95 x10^6/uL (3.50-5.40); RED CELL DISTRIBUTION WIDTH 16.2 % (11.5-14.5); WHITE BLOOD COUNT 6.4 x10^3/uL (4.0-11.0)
== END ==
LOC: ONCLAB 13:20
PROVIDERS: ATTEND Internal Medicine Hematology & Oncology
DX: D50.9 Iron deficiency anemia, unspecified (principal)
CPT/HCPCS: 36415; 82607; 82728; 82746; 83540; 83550; 85025

== ENCOUNTER → 2021-05-27 | Outpatient (CLI) | payer OTHER ==
[2021-05-27 13:23] LABS: BASO % 0 % (0-3); EOS # 0.1 x10^3/uL (0.0-0.7); EOS % 2 % (0-3); HEMATOCRIT 32.6 % (36.0-47.0); HEMOGLOBIN 10.4 g/dL (12.0-15.5); LYMPH # 1.5 x10^3/uL (1.0-4.8); LYMPH % 26 % (24-48); MEAN CORPUSCULAR HEMOGLOBIN 24 pg (25-35); MEAN CORPUSCULAR HGB CONC 32 g/dL (31-37); MEAN CORPUSCULAR VOLUME 74 fL (79-100); MONO # 0.4 x10^3/uL (0.0-1.1); MONO % 8 % (0-9); NEUT # 3.8 x10^3/uL (1.8-7.7); NEUT % 64 % (31-73); PLATELET COUNT 296 x10^3/uL (140-400); RED BLOOD COUNT 4.41 x10^6/uL (3.50-5.40); RED CELL DISTRIBUTION WIDTH 16.2 % (11.5-14.5)
== END ==
LOC: ONCLAB 12:38
PROVIDERS: ATTEND Physician Assistant
DX: D50.9 Iron deficiency anemia, unspecified (principal)
CPT/HCPCS: 36415; 82728; 83540; 83550; 85025